=== PATIENT | male | born 1975 | race Caucasian/White ===

== ENCOUNTER 2020-01-28 15:52 | Emergency (ER) | payer SELFPAY ==
[2020-01-28 15:56] VITALS: BP 127/90; PULSE 93; RESP 16; TEMP 36.7; O2SAT 97; BMI 24.3
[2020-01-28 17:15] VITALS: BP 129/85; PULSE 93; RESP 18; O2SAT 97
[2020-01-28 17:28] LABS: Basophils # 0.1 10^3/uL (0.0-0.1); Basophils % 0.5 %; Eosinophils # 0.3 10^3/uL (0.0-0.8); Eosinophils % 2.8 %; Hematocrit 43.5 % (42.0-52.0); Hemoglobin 14.4 g/dL (11.7-16.6); Lymphocytes % 26.3 %; Mean Corpuscular HGB Conc 33.1 g/dL (30.0-36.0); Mean Corpuscular Hemoglobin 29.9 pg (28.0-34.0); Mean Corpuscular Volume 90.2 fL (80-94); Mean Platelet Volume 9.8 fL (7.4-10.4); Monocytes # 0.7 10^3/uL (0.2-0.9); Monocytes % 6.5 %; Neutrophils # 7.2 10^3/uL (1.8-7.7); Neutrophils % 63.6 %; Nucleated Red Blood Cells % 0 %; Platelet Count 337 10^3/cmm (130-400); Red Blood Count 4.82 10^6/uL (4.1-5.3); Red Cell Distribution Width 12.5 % (12.1-15.1); White Blood Count 11.3 10^3/uL (4.0-10.0)
--- NOTE | 2020-01-28 17:41 | ED_ITS ---
Entered by Edna Zaidi, acting as scribe for Jody Rascon MD, [facility] Jan 28, 2020 15:52 HPI - SOB/Dyspnea General: Chief Complaint: Shortness of Breath/Dyspnea Stated Complaint: sob/cough Time Seen by Provider: 01/28/20 17:40 Source: patient Mode of arrival: ambulatory Limitations: no limitations History of Present Illness: HPI Narrative: 44 yo Male presents to ED with complaint of cough and shortness of breath. Pt states that the last 4 days he has been coughing. Pt states that it gets worse at night and he will wake up feeling like he is drowning. Pt states that he now has a headache and his throat is sore. Pt states that his temperature was a little over 100 degrees this morning. 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 Pt states the last time he was in [place] was of last week. Pt states that he smoked for 26 years and quit last year but started again last month. Pt states that his son recently tested positive for influenza A. MD elicited complaint: shortness of breath and cough Onset (ago): day(s) Context: recent illness Timing: progressively worsening Exacerbating factors: lying flat, exertion and coughing Relieving factors: upright position Associated symptoms: Reports cough and fever(s); Deny abdominal pain, chest pain, nausea, palpitations, polydipsia, polyuria or vomiting Treatment prior to arrival: none Related Data: Home oxygen amount: none Review of Systems General: Reports: 10 or more systems reviewed and unremarkable except in HPI and below Const: Reports: fever Eyes: Denies: change in vision or blurry vision ENMT: Denies: throat pain, enlarged tonsils, painful swallowing, hoarseness, mouth pain or swelling of lips/tongue Card: Denies: chest pain, palpitations, irregular heart rhythm, edema or swelling of feet/ankles Resp: Reports: shortness of breath, non-productive cough and wheezing; Denies: productive cough GI: Denies: abdominal pain, nausea or vomiting : Denies: flank pain, painful urination, urinary frequency, urinary urgency or urinary hesitancy Musc: Denies: neck pain, back pain or extremity swelling Skin/Breast: Denies: rash, itching or redness Neuro: Denies: headache, numbness in extremities or weakness in extremities Endo: Denies: excessive urination, excessive thirst or tired all the time PFSH ED PFSH: Social History Smoking and tobacco status: current every day smoker Physical Exam Const: COMMON NORMALS: no apparent distress, average body habitus, oriented x3, no limitations, healthy appearing, alert and well nourished HENMT: COMMON NORMALS: normocephalic, head/scalp atraumatic and moist oral mucous membranes HEAD & SCALP: normocephalic and atraumatic Eye: COMMON NORMALS: PERRL, EOMs intact bilaterally, conjunctivae normal and no scleral icterus CONJUNCTIVA: Yes conjunctivae normal PUPIL: Yes PERRL Neck/C-Spine: COMMON NORMALS: full ROM, supple, no meningeal signs, no JVD and no carotid bruits Chest: COMMONS NORMALS: inspection of chest normal and palpation of chest normal Resp: COMMON NORMALS: normal respiratory effort, no retractions, no use of accessory muscles, clear to auscultation bilaterally and percussion normal AUSCULTATION: clear to auscultation bilaterally PERCUSSION: percussion normal Cardio: COMMON NORMALS: no JVD, regular rate, regular rhythm, S1 normal heart sound, S2 normal heart sound, no gallops, no clicks, no murmurs, no rub and peripheral pulses 2+ throughout RATE: regular rate RHYTHM: regular rhythm HEART SOUNDS: S1 normal and S2 normal PERIPHERAL PULSES: pulses 2+ throughout GI: COMMON NORMALS: normal to inspection, nondistended, normoactive bowel sounds, soft to palpation, non-tender, no hepatosplenomegaly, no masses and no bruits PALPATION: Yes soft and Yes no hepatosplenomegaly : COMMON NORMALS: Yes no CVA tenderness BLADDER/KIDNEY EXAM: Yes no CVA tenderness Back/Pelvis: COMMON NORMALS: no CVA tenderness Extremity: COMMON NORMALS: normal to inspection, full ROM, normal capillary refill, no calf tenderness and no pedal edema Neuro: COMMON NORMALS: oriented x3 SENSORIUM/ORIENTATION: Yes alert MENINGEAL SIGNS: Yes no meningeal signs Skin: COMMON NORMALS: no rashes or lesions noted, no wounds, skin turgor normal, no jaundice, no petechiae and no mottling GENERAL SKIN EXAM: no rashes or lesions noted and turgor normal Course Reevaluation(s): Reevaluation #1: Discussed his lab and imaging findings with him. Negative for acute findings. He probably has a viral upper respiratory tract infection. We will discharge him home with cough medicine. I explained to him that currently he does admit the state testing criteria for the covid-19 infection. I explained my conversation with the wound care center consultant and he voiced understanding and is in agreement with the plan. Time: 19:14 Vital Signs: Vital signs: Vital Signs Temperature 98.1 F 01/28/20 15:56 Pulse Rate 80 01/28/20 19:27 Respiratory Rate 20 H 01/28/20 19:27 Blood Pressure 124/84 01/28/20 19:27 Pulse Oximetry 97 01/28/20 19:27 MDM - SOB/Dyspnea MDM Narrative: Medical decision making narrative: 44-year-old male patient who presents with symptoms suggestive of a viral upper respiratory tract infection. Nothing in his history is suggestive of exposure to or risk factors for COVID- 19. He is discharged home on conservative measures. Differential Diagnosis: Shortness of Breath Differential Diagnosis: Likely acute exacerbation of chronic obstructive airways disease, community acquired pneumonia and pulmonary embolism Medical Records: Attestation: I reviewed the patient's medical records. Lab Data: Attestation: I reviewed the patient's lab results. Labs: Lab Results 01/28/20 01/28/20 01/28/20 Range/Units 17:02 17:02 17:15 WBC 11.3 H (4.0-10.0) 10^3/ uL RBC 4.82 (4.1-5.3) 10^6/u L Hgb 14.4 (11.7-16.6) g/dL Hct 43.5 (42.0-52.0) % MCV 90.2 (80-94) fL MCH 29.9 (28.0-34.0) pg MCHC 33.1 (30.0-36.0) g/dL RDW 12.5 (12.1-15.1) % Plt Count 337 (130-400) 10^3/c mm MPV 9.8 (7.4-10.4) fL Neut % (Auto) 63.6 % Lymph % (Auto) 26.3 % [place] % (Auto) 6.5 % Eos % (Auto) 2.8 % Baso % (Auto) 0.5 % Neut # (Auto) 7.2 (1.8-7.7) 10^3/u L Lymph # (Auto) 3.0 (0.8-4.8) 10^3/u L [place] # (Auto) 0.7 (0.2-0.9) 10^3/u L Eos # (Auto) 0.3 (0.0-0.8) 10^3/u L Baso # (Auto) 0.1 (0.0-0.1) 10^3/u L Nucleated RBC % (a uto) 0 % Nucleated RBCs # 0.0 /100WBC Sodium 138 (136-145) mmol/L Potassium 4.2 (3.5-5.1) mmol/L Chloride 101 (98-107) mmol/L Carbon Dioxide 26 (22-29) mmol/L Anion Gap 15.2 (5-19) BUN 12 (6-20) mg/dL Creatinine 1.1 (0.7-1.2) mg/dL GFR Calculation 73.1 L (90-130) mL/min Glucose 99 (65-115) mg/dL Calculated Osmolal ity 282 L (285-295) mOsm/k g Calcium 9.5 (8.5-10.5) mg/dL Total Bilirubin 0.2 (0.15-1.2) mg/dL AST 20 (0-40) U/L ALT 21 (0-41) U/L Alkaline Phosphata se 102 (40-130) IU/L Total Protein 7.2 (6.6-8.7) g/dL Albumin 4.5 (3.5-5.2) g/dL Globulin 2.7 (1.3-4.6) g/dL Influenza Type A A g Negative (Negative) POC Influenza B Ag Negative (Negative) Discharge Plan Discharge Patient Disposition: Home, Self-Care Clinical Impression: Viral upper respiratory tract infection Condition: Stable Prescriptions: New promethazine-codeine 6.25-10 mg/5 mL syrup 5 ml PO Q4H PRN (Reason: cough) Qty: 100 RF: 0 Continued Ativan 0.5 mg Tablet See Rx Instructions .ROUTE .COMPLEX RF: 0 Dayquil 2 cap PO QAM RF: 0 Discontinued guaifenesin [Tussin] 100 mg/5 mL Liquid 100 mg PO PRN RF: 0 Nyquil 2 cap PO QPM RF: 0 Discharge Orders: Discharge Order (Routine); Ordered 01/28/20 Ordered By: Jody Rascon Referrals: Ken Key DO [Primary Care Provider] - 7-10 days Patient Instructions: Upper Respiratory Infection (ED) Activity Restrictions/Additional Instructions: Return for any new or worsening symptoms. Follow-up with your primary care provider within 1 week. Take the cough medicine as needed for cough, however do not take it while driving or operating heavy machinery as it may cause drowsiness. You currently do not meet criteria for COVID-19 testing, however if you feel worse or develop other symptoms that are concerning please return for evaluation. 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
[2020-01-28 17:47] LABS: Alanine Aminotransferase 21 U/L (0-41); Albumin Level 4.5 g/dL (3.5-5.2); Alkaline Phosphatase 102 IU/L (40-130); Anion Gap 15.2 (5-19); Aspartate Amino Transferase 20 U/L (0-40); Blood Urea Nitrogen 12 mg/dL (6-20); Calcium 9.5 mg/dL (8.5-10.5); Carbon Dioxide 26 mmol/L (22-29); Chloride 101 mmol/L (98-107); Globulin 2.7 g/dL (1.3-4.6); Glomerular Filtration Rate 73.1 mL/min (90-130); Glucose 99 mg/dL (65-115); Osmolality Calculated 282 mOsm/kg (285-295); Potassium 4.2 mmol/L (3.5-5.1); Sodium 138 mmol/L (136-145); Total Bilirubin 0.2 mg/dL (0.15-1.2); Total Protein 7.2 g/dL (6.6-8.7)
--- NOTE | 2020-01-28 17:49 | XR_ITS ---
WS: [id number] XR chest 2V* [id number] REASON FOR EXAM: SOB FINDINGS: The heart and mediastinal interfaces normal. There are small granulomas in both hilar areas these are well calcified. The lung calle are well aerated no pneumonia, pleural effusion, pulmonary edema, or pneumothorax. The hilum is and apices normal. No osseous abnormalities. The chest is similar to November 08, 2018. XR/XR chest 2V* [id number] IMPRESSION: Negative chest for active pathology.
[2020-01-28 17:56] LABS: Influenza A by IFA Negative (Negative); Influenza B by IFA Negative (Negative)
[2020-01-28 19:27] VITALS: BP 124/84; PULSE 80; RESP 20; O2SAT 97
== END 2020-01-28 19:27 | disposition home or self-care (01) ==
PROVIDERS: Emergency Provider Family Medicine; Family Provider Family Medicine; PCP Family Medicine
DX: J06.9 Acute upper respiratory infection, unspecified (principal); B34.9 Viral infection, unspecified; F17.210 Nicotine dependence, cigarettes, uncomplicated
CPT/HCPCS: 12345; 36415; 71046; 80053; 85025; 87804; 99282; 99283

== ENCOUNTER 2020-02-14 14:39 | Emergency (ER) | payer OTHER, SELFPAY ==
[2020-02-14 14:47] VITALS: BP 156/94; PULSE 79; RESP 20; TEMP 36.6; O2SAT 96; BMI 25.8
--- NOTE | 2020-02-14 15:01 | CT_ITS ---
WS: [id number] CT LUMBAR SPINE, noncontrast. HISTORY: acute low back pain, left side, injury TECHNIQUE: Contiguous 2.5 mm axial imaging are performed. Sagittal and coronal reformats are submitte d and reviewed. All CT scans at [facility] use at least one of these dose optimization te chniques: automated exposure control; mA and/or kV adjustment per patient size (includes targeted exa ms where dose is matched to clinical indication); or iterative reconstruction. IV contrast: None DLP: 1821.47 mGy.cm COMPARISON: None available. Normal lumbar alignment with no loss of disc space height or vertebral body height. L1-2: Normal. L2-3: Normal. L3-4: Very minimal bulging into the LEFT foramen and contacting the L3 nerve root. No displacement. T his is minimal disc bulging. L4-5: Normal. L5-S1: No disc herniations or stenosis. S1 spina bifida occulta. Visualized retroperitoneum is normal. CT/CT lumbar spine wo con* [id number] IMPRESSION: 1. No significant disc herniations or fractures. 2. Very minimal disc bulging into the LEFT foramen at L3-4 with mild contact o n the LEFT L3 nerve root.
--- NOTE | 2020-02-14 15:02 | ED_ITS ---
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 Patient appears uncomfortable has pain down to lower buttock and down into the groin area and the low back denies any urination problems is able to urinate fine MD elicited complaint: back pain and back injury Pertinent past history: prior back pain Onset (ago): hour(s) (Happened at 1230 today) Timing: constant and progressively worsening Severity: moderate Similar Symptoms Previously: No Quality: stabbing and aching Location: left lower back Radiation: buttocks Exacerbating factors: movement, walking and lifting Relieving factors: immobilization Context: while lifting, turning/twisting and bending Associated symptoms: Reports no associated symptoms; Deny abdominal pain, chills, fever(s), nausea or vomiting Work related injury: Yes Review of Systems Const: Denies: fever, chills or body aches Eyes: Denies: change in vision or blurry vision ENMT: Denies: throat pain or nasal congestion Card: Denies: chest pain or shortness of breath on exertion Resp: Denies: shortness of breath, productive cough or non-productive cough GI: Denies: abdominal pain, nausea or vomiting : Denies: difficulty urinating Musc: Reports: back pain; Denies: extremity pain Skin/Breast: Denies: rash Neuro: Denies: headache Psych: Denies: anxiety or depression [place]/Lymph: Denies: easy bruising PFS ED PFSH: Social History Smoking and tobacco status: current every day smoker Physical Exam Const: COMMON NORMALS: no apparent distress, average body habitus and oriented x3 HENMT: COMMON NORMALS: normocephalic HEAD & SCALP: normal to inspection and normocephalic FACE & SINUS: normal facial exam Eye: COMMON NORMALS: conjunctivae normal GENERAL EYE: normal appearance of both eyes CONJUNCTIVA: Yes conjunctivae normal Neck/C-Spine: COMMON NORMALS: no JVD Chest: COMMONS NORMALS: inspection of chest normal Resp: COMMON NORMALS: normal respiratory effort and clear to auscultation bilaterally AUSCULTATION: clear to auscultation bilaterally Cardio: COMMON NORMALS: no JVD, regular rate and regular rhythm RATE: regular rate RHYTHM: regular rhythm GI: COMMON NORMALS: normal to inspection, nondistended, normoactive bowel sounds Back/Pelvis: LUMBAR SPINE/LOWER BACK: Yes ROM limited, Yes pain with ROM, Yes paraspinal muscle spasm and Yes straight leg raise positive left Straight leg raise positive details left: at 30 degrees Extremity: COMMON NORMALS: normal to inspection and full ROM Neuro: COMMON NORMALS: oriented x3 Course Vital Signs: Vital signs: Vital Signs Temperature 98 F 02/14/20 14:47 Pulse Rate 79 02/14/20 14:47 Respiratory Rate 20 H 02/14/20 14:47 Blood Pressure 156/94 02/14/20 14:47 Pulse Oximetry 96 02/14/20 14:47 Discharge Plan Discharge Condition: Stable Prescriptions: No Action Ativan 0.5 mg Tablet See Rx Instructions .ROUTE .COMPLEX RF: 0 Dayquil 2 cap PO QAM RF: 0 promethazine-codeine 6.25-10 mg/5 mL syrup 5 ml PO Q4H PRN (Reason: cough) Qty: 100 RF: 0 Coding Level of Care Code ED 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
[2020-02-14] MEDS: HYDROcodone-acetaminophen 7.5-325 mg Tablet 1 TAB PO (15:08)
[2020-02-14] MEDS: ketorolac 60 mg/2 mL INJ IM (15:09)
[2020-02-14] MEDS: methocarbamol 500 mg Tablet PO (15:20)
[2020-02-14 16:00] VITALS: BP 122/94; PULSE 81; RESP 18; O2SAT 97
== END 2020-02-14 16:03 | disposition home or self-care (01) ==
PROVIDERS: Emergency Provider Nurse Practitioner Family; Family Provider Family Medicine; PCP Family Medicine
DX: M54.16 Radiculopathy, lumbar region (principal); F17.200 Nicotine dependence, unspecified, uncomplicated
CPT/HCPCS: 12345; 72131; 96372; 99281; 99283; J1885

== ENCOUNTER 2020-04-24 08:34 | Outpatient (CLI) | payer OTHER, SELFPAY ==
--- NOTE | 2020-04-24 08:37 | MR_ITS ---
WS: [id number] MRI LUMBAR SPINE NONCONTRAST HISTORY: LOW BACK PAIN W/NEURALGIA OF LT SCIATIC NERVE COMPARISON: 02/14/2020 TECHNIQUE: Sagittal and axial multisequence imaging is submitted. Minimal straightening of the normal lumbar lordosis. Disc spaces and vertebral body heights are max l. There is no marrow edema or fracture. Disc spaces and vertebral body heights are well-preserved. Conus terminates normally at L1-2 disc level. L1-L2: Normal. L2-L3: Normal. L3-L4: Asymmetric disc bulging to the LEFT into the foramen and extraforaminal. There is contact on t he L3 nerve root and displacement. Moderate effacement of fat in the LEFT foramen. There is mild face t joint arthritis and fluid in the facet joints. L4-L5: Normal. L5-S1: Normal. Retroperitoneum and soft tissues are negative. MR/MR lumbar spine wo con* [id number] IMPRESSION: 1. Broad-based asymmetric disc bulging into the LEFT L3-4 foramen and extrafor aminal with contact on the L3 nerve root. Moderate LEFT foraminal stenosis at L 3-4. 2. No central stenosis.
== END 2020-04-24 08:35 | disposition home or self-care (01) ==
LOC: RADSHAW 08:36
PROVIDERS: PCP Family Medicine; Visit Provider Nurse Practitioner Family
DX: G58.8 Other specified mononeuropathies (principal); M51.26 Other intervertebral disc displacement, lumbar region; M48.061 Spinal stenosis, lumbar region without neurogenic claudication
CPT/HCPCS: 72148

== ENCOUNTER 2020-06-16 13:07 | Emergency (ER) | payer SELFPAY ==
[2020-06-16 13:21] VITALS: BMI 22.1
[2020-06-16 13:24] VITALS: BP 99/79; PULSE 84; RESP 24; TEMP 36.6; O2SAT 99
--- NOTE | 2020-06-16 14:00 | W.ED.SOB ---
HPI - SOB/Dyspnea General: Chief Complaint: Shortness of Breath/Dyspnea Stated Complaint: SOB Time Seen by Provider: 06/16/20 13:28 History of Present Illness: HPI Narrative: 64-year-old male comes in complaining of shortness of breath he is [address] Miguel A Sanchez did a laminectomy at the L3 level on 629 he still has some hypersensitivity along the L3 dermatome on the left leg but that has been improving yesterday he suddenly began to be markedly short of breath and is persisted over the last 24 hours and if he exerts himself he gets unusually short of breath. He has been trying to be active but admits he has been for the most part sedentary beyond physical therapy. He does not have a cough is is no sputum production he denies fever he has had a little sweats at times but denies chills no hemoptysis. He is not on any oxygen at home. MD elicited complaint: shortness of breath and cough Pertinent past history: other (Recent lumbar laminectomy surgery) Onset (ago): day(s) (1) Context: other (Recent surgery) Timing: constant Severity: moderate Exacerbating factors: exertion Relieving factors: oxygen and rest Known history of: other (Recent lumbar laminectomy) Associated symptoms: Deny chest congestion, chest pain, cough, diaphoresis, dizziness, extremity pain, fever(s), hemoptysis, lightheadedness, nausea, orthopnea, palpitations, syncope or vomiting Treatment prior to arrival: oxygen and bronchodilator Review of Systems Const: Denies: fever(s) or diaphoresis ENMT: Denies: throat pain, ear or mastoid pain, nasal discharge or nasal congestion Card: Denies: chest pain, palpitations, lightheadedness, syncope or orthopnea Resp: Denies: hemoptysis or chest congestion GI: Denies: nausea or vomiting : Denies: flank pain, dysuria, urinary frequency or urinary urgency Musc: Denies: extremity pain Skin/Breast: Denies: rash or pruritus Neuro: Denies: dizziness PFSH ED PFSH: Medical History (Updated 06/16/20 @ 15:19 by Neeraj Nix DO) No significant past medical history Surgical History (Updated 06/16/20 @ 15:12 by Neeraj Nix DO) History of lumbar laminectomy Social History Smoking and tobacco status: current every day smoker Physical Exam Const: COMMON NORMALS: no acute distress GENERAL APPEARANCE: cooperative and comfortable ORIENTATION/CONSCIOUSNESS: Yes awake, Yes oriented to person, Yes oriented to place and Yes oriented to time HENMT: COMMON NORMALS: normocephalic and atraumatic HEAD & SCALP: normocephalic and atraumatic Eye: COMMON NORMALS: Equal, round and reactive pupils present, EOMs intact bilaterally, conjunctivae normal and no scleral icterus CONJUNCTIVA: Yes conjunctivae normal PUPIL: Yes Equal, round and reactive pupils present Neck/C-Spine: COMMON NORMALS: full ROM, no lymphadenopathy, supple and no JVD OTHER: Auscultated little stridor in the neck. Stridor is audible in the exam room. Lymph: LYMPHATIC: no lymphadenopathy noted and no lymphedema noted Resp: COMMON NORMALS: normal respiratory effort, No retractions, No use of accessory muscles and clear to auscultation bilaterally AUSCULTATION: clear to auscultation bilaterally Cardio: COMMON NORMALS: no JVD, regular rate, regular rhythm and No murmurs present (Cardio) RATE: regular rate RHYTHM: regular rhythm GI: COMMON NORMALS: Soft to palpation and No hepatosplenomegaly present AUSCULTATION: Yes normoactive bowel sounds PALPATION: Yes Soft to palpation, No Tenderness to palpation present (GI), No Guarding due to palpation present (GI) and Yes No hepatosplenomegaly present Extremity: COMMON NORMALS: normal to inspection, capillary refill normal, no clubbing, cyanosis or edema, no calf tenderness and no pedal edema Neuro: SENSORIUM/ORIENTATION: Yes oriented to person, Yes oriented to place and Yes oriented to time Skin: COMMON NORMALS: no rashes or lesions noted GENERAL SKIN EXAM: no rashes or lesions noted Course Vital Signs: Vital signs: Vital Signs Temperature 97.8 F 06/16/20 13:24 Pulse Rate 88 06/16/20 16:03 Respiratory Rate 18 06/16/20 16:03 Blood Pressure 121/88 06/16/20 16:03 Pulse Oximetry 98 06/16/20 16:03 MDM - SOB/Dyspnea MDM Narrative: Medical decision making narrative: Patient has findings of pneumonia on the CTA. Not present on the chest x-ray. We will go ahead and start on antibiotics and albuterol inhaler. Return if has problems follow-up with primary care next week. Lab Data: Labs: Lab Results 06/16/20 06/16/20 06/16/20 Range/Units 14:20 14:29 14:29 WBC 7.2 (4.0-10.0) 10^3/ uL RBC 4.67 (4.1-5.3) 10^6/u L Hgb 13.8 (11.7-16.6) g/dL Hct 41.9 L (42.0-52.0) % MCV 89.7 (80-94) fL MCH 29.6 (28.0-34.0) pg MCHC 32.9 (30.0-36.0) g/dL RDW 12.9 (12.1-15.1) % Plt Count 296 (130-400) 10^3/c mm MPV 9.6 (7.4-10.4) fL Neut % (Auto) 52.4 % Lymph % (Auto) 31.2 % [place] % (Auto) 8.7 % Eos % (Auto) 6.6 % Baso % (Auto) 0.8 % Neut # (Auto) 3.78 (1.8-7.7) 10^3/u L Lymph # (Auto) 2.3 (0.8-4.8) 10^3/u L [place] # (Auto) 0.6 (0.2-0.9) 10^3/u L Eos # (Auto) 0.5 (0.0-0.8) 10^3/u L Baso # (Auto) 0.1 (0.0-0.1) 10^3/u L Nucleated RBC % (a uto) 0 % Nucleated RBCs # 0.0 /100WBC Specimen Type Arterial Sample Site Radial, right ABG pH 7.50 H (7.35-7.45) ABG pCO2 30.9 L (35-45) mmHg ABG pO2 89.7 (80.0-100.0) mmH g ABG HCO3 23.9 (22-26) mmol/L ABG O2 Saturation 98.3 ABG Base Excess 1.4 (-2.0-2.0) mmol/ L [place] Test Pos A-a O2 Gradient 2.7 L (5-10) mmHg Hematocrit 43.7 (42-52) % Hgb O2 Saturation 95.2 (95-100) % Carboxyhemoglobin 2.4 (0.4-20.1) %THgb Methemoglobin 0.7 (0.4-1.5) % Total Hemoglobin 14.2 (14-18) g/dL Sodium 142.0 139 (131-143) mmol/L Potassium 3.6 3.9 (3.5-5.0) mmol/L Glucose 122.0 H 112 (70-115) mg/dL Ionized Calcium 1.2 (1.1-1.4) mmol/L O2 Delivery Device Room air FiO2 21.0 % Pediatric Physical Therapist ID [place] Chloride 104 (98-107) mmol/L Carbon Dioxide 27 (22-29) mmol/L Anion Gap 11.9 (5-19) BUN 9 (6-20) mg/dL Creatinine 0.8 (0.7-1.2) mg/dL GFR Calculation 105.5 (90-130) mL/min Calculated Osmolal ity 285 (285-295) mOsm/k g Calcium 8.7 (8.5-10.5) mg/dL Total Bilirubin 0.2 (0.15-1.2) mg/dL AST 17 (0-40) U/L ALT 24 (0-41) U/L Alkaline Phosphata se 94 (40-130) IU/L Total Protein 7.1 (6.6-8.7) g/dL Albumin 4.2 (3.5-5.2) g/dL Globulin 2.9 (1.3-4.6) g/dL Discharge Plan Discharge Patient Disposition: Home Clinical Impression: Community acquired pneumonia Condition: Stable Prescriptions: New Levaquin 750 mg tablet 750 mg PO DAILY 7 Days Qty: 7 RF: 0 albuterol sulfate 90 mcg/actuation HFA aerosol inhaler 2 inh INHALATION Q4H PRN (Reason: shortness of breath or wheezing) Qty: 18 RF: 0 No Action lorazepam [Ativan] 0.5 mg Tablet See Rx Instructions .ROUTE .COMPLEX RF: 0 Soma 350 mg Tablet 350 mg PO TID PRN (Reason: Pain) RF: 0 cyclobenzaprine 10 mg Tablet 10 mg PO TID PRN (Reason: Muscle Pain) RF: 0 amitriptyline 25 mg Tablet 25 mg PO DAILY RF: 0 gabapentin 300 mg Capsule See Rx Instructions .ROUTE .COMPLEX RF: 0 diclofenac sodium 75 mg Tablet,Delayed Release (Dr/Ec) 75 mg PO BID PRN (Reason: Pain) RF: 0 Discharge Orders: Discharge Order (Routine); Ordered 06/16/20 Ordered By: Neeraj Nix Referrals: Ken Key, [Primary Care Provider] - Discharge Diet: Advance as tolerated Discharge Activity: Resume usual activity Activity Restrictions/Additional Instructions: Add Levaquin 750 p.o. 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
--- NOTE | 2020-06-16 14:10 | CT_ITS ---
WS: [id number] CT CHEST ANGIOGRAPHY WITH REFORMATS HISTORY: Dyspnea/ chest pain TECHNIQUE: Contiguous axial images are obtained through the chest during arterial injection of intrav enous contrast. Images are reconstructed to evaluate the pulmonary arteries. MIP imaging also reviewe d. All CT scans at [facility] use at least one of these dose optimization techniques: aut omated exposure control; mA and/or kV adjustment per patient size (includes targeted exams where dose is matched to clinical indication); or iterative reconstruction. CONTRAST: Omnipaque 350; 95 mL IV. DLP: 610.16 mGy.cm COMPARISON: None available. Excellent opacification of the pulmonary arteries. No pulmonary embolism. Pulmonary artery size is no rmal. Normal thoracic aorta. No pericardial or pleural effusion. Heart size is normal. Mild tree-in-b ud airspace disease involving the distal airways of the RIGHT upper lobe. There are additional change s of chronic emphysema and reticular interstitial thickening. Indeterminate mediastinal and hilar lymph nodes. Largest lymph node is at the RIGHT hilum measuring 1 2 mm in short axis diameter. Subcarinal lymph node measures 11 mm. Smaller LEFT hilar and RIGHT parat [place] lymph nodes are seen present. Liver is top normal size. Hepatic steatosis along the falciform ligament. No bile duct dilatation. Ga llbladder is negative. No adrenal mass. No osteoblastic or osteolytic bone disease. CT/CT angio chest PE protcl [id number] IMPRESSION: 1. No pulmonary embolism. 2. Very mild early changes of tree-in-bud opacification RIGHT upper lobe. Most likely due to endobronchial pneumonia. 3. Enlarged mediastinal and hilar lymph nodes are probably reactive.
--- NOTE | 2020-06-16 14:10 | XR_ITS ---
WS: [id number] PORTABLE CHEST HISTORY: dyspnea/cough COMPARISON: 01/28/2020 Lungs are clear and well expanded. No pleural effusion or pneumothorax. Cardiac size: Normal. Mediastinum/Aorta: Normal mediastinum. No osseous abnormality seen. XR/XR chest 1V portable [id number] IMPRESSION: Unremarkable portable chest.
--- NOTE | 2020-06-16 14:11 | ECG_ITS ---
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 Measurements Intervals [place] Rate: 62 P: 54 MS: 227 QRS: 50 QRSD: 81 T: 61 QT: 365 QTc: 371 Interpretive Statements SINUS RHYTHM WITH SINUS ARRHYTHMIA WITH FIRST DEGREE AV BLOCK Compared to ECG 09/03/2018 12:39:06 Early repolarization no longer present Electronically Signed On 06-16-2020 21:44:03 CDT by Mary Greco M.D. [id number] f
[2020-06-16 14:22] VITALS: BP 119/82; PULSE 88; RESP 20; O2SAT 96
[2020-06-16 14:33] LABS: ABG PCO2 30.9 mmHg (35-45); Alveolar-Arterial Oxygen Gradi 2.7 mmHg (5-10); Arterial Blood Gas Hematocrit 43.7 % (42-52); Base Excess ABG 1.4 mmol/L (-2.0-2.0); Blood Gas Allen Test Pos; Blood Gas Operator Identificat MONRO; Blood Gas Sample Site Radial, right; Blood Gas Sample Type Arterial; Carboxyhemoglobin 2.4 %THgb (0.4-20.1); HCO3 ABG 23.9 mmol/L (22-26); HGB O2 Sat 95.2 % (95-100); Ionized Calcium Level - ABG 1.2 mmol/L (1.1-1.4); Methemoglobin 0.7 % (0.4-1.5); Oxygen Device ROOM AIR; Oxygen Saturation ABG 98.3; PO2 ABG 89.7 mmHg (80.0-100.0); Potassium Level - ABG 3.6 mmol/L (3.5-5.0); Total Hemoglobin 14.2 g/dL (14-18)
[2020-06-16 14:38] LABS: Basophils # 0.1 10^3/uL (0.0-0.1); Basophils % 0.8 %; Eosinophils # 0.5 10^3/uL (0.0-0.8); Eosinophils % 6.6 %; Hematocrit 41.9 % (42.0-52.0); Hemoglobin 13.8 g/dL (11.7-16.6); Lymphocytes # 2.3 10^3/uL (0.8-4.8); Lymphocytes % 31.2 %; Mean Corpuscular HGB Conc 32.9 g/dL (30.0-36.0); Mean Corpuscular Hemoglobin 29.6 pg (28.0-34.0); Mean Corpuscular Volume 89.7 fL (80-94); Mean Platelet Volume 9.6 fL (7.4-10.4); Monocytes # 0.6 10^3/uL (0.2-0.9); Monocytes % 8.7 %; Neutrophils # 3.78 10^3/uL (1.8-7.7); Neutrophils % 52.4 %; Nucleated Red Blood Cells % 0 %; Platelet Count 296 10^3/cmm (130-400); Red Blood Count 4.67 10^6/uL (4.1-5.3); Red Cell Distribution Width 12.9 % (12.1-15.1); White Blood Count 7.2 10^3/uL (4.0-10.0)
[2020-06-16] MEDS: iohexol 350 mg/mL 100 mL Btl IV (14:48)
[2020-06-16 14:54] LABS: Alanine Aminotransferase 24 U/L (0-41); Albumin Level 4.2 g/dL (3.5-5.2); Alkaline Phosphatase 94 IU/L (40-130); Anion Gap 11.9 (5-19); Aspartate Amino Transferase 17 U/L (0-40); Blood Urea Nitrogen 9 mg/dL (6-20); Calcium 8.7 mg/dL (8.5-10.5); Carbon Dioxide 27 mmol/L (22-29); Chloride 104 mmol/L (98-107); Globulin 2.9 g/dL (1.3-4.6); Glomerular Filtration Rate 105.5 mL/min (90-130); Glucose 112 mg/dL (65-115); Osmolality Calculated 285 mOsm/kg (285-295); Potassium 3.9 mmol/L (3.5-5.1); Sodium 139 mmol/L (136-145); Total Bilirubin 0.2 mg/dL (0.15-1.2); Total Protein 7.1 g/dL (6.6-8.7)
[2020-06-16 15:22] VITALS: BP 121/88; PULSE 88; RESP 18; O2SAT 98
[2020-06-16 16:03] VITALS: BP 121/88; PULSE 88; RESP 18; O2SAT 98
== END 2020-06-16 16:03 | disposition home or self-care (01) ==
PROVIDERS: Emergency Provider Family Medicine; PCP Family Medicine
DX: J18.9 Pneumonia, unspecified organism (principal); F17.210 Nicotine dependence, cigarettes, uncomplicated
CPT/HCPCS: 12345; 36415; 36600; 71045; 71275; 80051; 80053; 82810; 83986; 85025; 93005; 99283; Q9967

== ENCOUNTER 2020-06-22 04:54 | Observation (INO) | payer OTHER, SELFPAY ==
[2020-06-22] VITALS (15 sets, daily range): BP systolic 106–141; BP diastolic 69–93; PULSE 72–113; RESP 15–26; TEMP 36.6–37; O2SAT 92–98; BMI 23.6
--- NOTE | 2020-06-22 05:17 | XRR_ITS ---
PROCEDURE INFORMATION: Exam: XR Chest, 1 View Exam date and time: 06/22/2020 5:44 AM Age: 44 years old Clinical indication: Cough and shortness of breath; Additional info: SOB x 4 or 5 days TECHNIQUE: Imaging protocol: XR of the chest Views: Frontal portable upright view of the chest. COMPARISON: CR XR chest 1V portable [id number] 06/16/2020 2:23 PM FINDINGS: Tubes, catheters and devices: EKG leads are present overlying the chest. Lungs: The lungs are clear bilaterally. The pulmonary vasculature is normal. Pleural space: No pleural effusion. No pneumothorax. Heart/Mediastinum: The heart is normal in size and contour. Mediastinum: Stable. Bones/joints: Right lateral vertebral body marginal osteophytes are noted at lower thoracic spinal levels. XR/XR chest 1V portable [id number] IMPRESSION: No acute cardiopulmonary abnormality identified.
--- NOTE | 2020-06-22 05:18 | ECG_ITS ---
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 Measurements Intervals [place] Rate: 79 P: 60 CT: 187 QRS: 68 QRSD: 78 T: 70 QT: 323 QTc: 372 Interpretive Statements SINUS RHYTHM Compared to ECG 06/16/2020 14:57:58 Sinus arrhythmia no longer present First degree AV block no longer present Electronically Signed On 06-22-2020 15:47:03 CDT by Mary Greco M.D. [id number]
--- NOTE | 2020-06-22 05:42 | ED_ITS ---
Documented by User: Shadi Mojica DO 06/22/20 05:59 HPI - SOB/Dyspnea General: Chief Complaint: Shortness of Breath/Dyspnea Stated Complaint: sob Time Seen by Provider: 06/22/20 05:03 History of Present Illness: HPI Narrative: 44-year-old male who was here a week or so ago. He complained of cough and shortness of breath at that point. He was diagnosed with pneumonia after he had a CTA. He returns today. He still short of breath. He is coughing quite a bit. He denies any fever. Says his sputum production is clear to white and scant. He has had no known exposure to COVID-19. MD elicited complaint: shortness of breath Pertinent past history: pneumonia Onset (ago): day(s) Context: recent illness Timing: constant Severity: moderate Exacerbating factors: exertion Relieving factors: nothing Associated symptoms: Reports chest congestion, chest pain and cough; Deny abdominal pain, dizziness, fever(s), nausea, orthopnea, palpitations or vomiting Treatment prior to arrival: bronchodilator Review of Systems Const: Reports: chills; Denies: fever(s) Eyes: Denies: change in vision ENMT: Reports: post nasal drip; Denies: swelling of lips/tongue or sinus pain Card: Reports: chest pain; Denies: palpitations, irregular heart rhythm, edema, dyspnea on exertion or orthopnea Resp: Reports: chest congestion GI: Denies: abdominal pain, nausea, vomiting or melena : Denies: difficulty urinating or hematuria Musc: Reports: back pain; Denies: neck pain or joint warmth Skin/Breast: Denies: rash or erythema Neuro: Denies: headache(s), dizziness or vertigo Psych: Denies: anxiety [facility] ED PFSH: Medical History (Updated 06/24/20 @ 00:00 by ) No significant past medical history Surgical History (Updated 06/22/20 @ 09:28 by Selam Modi DO) History of esophagogastroduodenoscopy (EGD) History of lumbar laminectomy May 11, 2020 performed in [place], [place] Family History (Updated 06/22/20 @ 09:29 by Selam Modi DO) Grandfather CAD (coronary artery disease), Onset Age: 32 CABG x3 at age 32 Father CAD (coronary artery disease) Grandmother Lung disease Social History (Updated 06/22/20 @ 09:30 by Selam Modi DO) Smoking and tobacco status: current every day smoker cigarettes Packs smoked per day: 2 Alcohol intake: unknown Physical Exam Const: GENERAL APPEARANCE: well developed, anxious and ill appearing ORIENTATION/CONSCIOUSNESS: Yes oriented to person, Yes oriented to place and Yes oriented to time HENMT: COMMON NORMALS: normocephalic, external ears normal and Normal external nose present HEAD & SCALP: normocephalic FACE & SINUS: normal facial exam NOSE: Normal external nose present and No nasal discharge present EXTERNAL EAR: Yes external ears normal MOUTH: tongue normal Eye: COMMON NORMALS: Equal, round and reactive pupils present, EOMs intact bilaterally and conjunctivae normal EYELID: eyelids normal CONJUNCTIVA: Yes conjunctivae normal PUPIL: Yes Equal, round and reactive pupils present Neck/C-Spine: GENERAL: No tracheal deviation Chest: COMMONS NORMALS: normal inspection of the chest CHEST: No tenderness Resp: COMMON NORMALS: clear to auscultation bilaterally EFFORT & INSPECTION: Yes tachypneic, Yes respiratory distress, No retractions, Yes uses accessory muscles and No tracheal deviation AUSCULTATION: clear to auscultation bilaterally, no rhonchi, no wheezes and diminished lung sounds Cardio: COMMON NORMALS: regular rate and regular rhythm RATE: regular rate RHYTHM: regular rhythm HEART SOUNDS: no murmurs PERIPHERAL PULSES: radial pulses present GI: INSPECTION: No abdominal distension AUSCULTATION: No Hyperactive bowel sounds present and No Hypoactive bowel sounds present PALPATION: No Guarding due to palpation present (GI) and No Rigid due to palpation PERCUSSION: no dullness to percussion and no tympanic to percussion Neuro: SENSORIUM/ORIENTATION: Yes oriented to person, Yes oriented to place and Yes oriented to time Psych: COMMON NORMALS: mental status grossly normal Skin: COMMON NORMALS: no rashes or lesions noted GENERAL SKIN EXAM: no rashes or lesions noted Course Vital Signs: Vital signs: Vital Signs Temperature 97.5 F L 06/23/20 12:00 Pulse Rate 96 06/23/20 15:01 Respiratory Rate 18 06/23/20 13:20 Blood Pressure 132/75 06/23/20 12:00 Pulse Oximetry 95 06/23/20 13:20 MDM - SOB/Dyspnea MDM Narrative: Medical decision making narrative: 44-year-old male with a recent back surgery. He was recently diagnosed with pneumonia, after being seen here short of breath, and receiving a CTA. His CTA was negative for PE. He is not improved after 7 days of Levaquin therapy. His original O2 sat was 92 to 94% with a respiratory rate above 24. His heart rates in the 90s to low 100s. His blood pressure is normal. His EKG shows a normal sinus rhythm with a normal axis rate of [address] changes. His chest x-ray looks clear. Rapid COVID-19 test is pending, as his other laboratory. A CTA has been ordered as well. He will be checked out to Dr. Nix at shift change. Lab Data: Labs: Lab Results 06/22/20 06/22/20 06/22/20 Range/Units 05:06 05:06 05:06 WBC Cancelled Corrected WBC Cancelled RBC Cancelled Hgb Cancelled Hct Cancelled MCV Cancelled MCH Cancelled MCHC Cancelled RDW Cancelled Plt Count Cancelled MPV Cancelled Gran % Cancelled Neut % (Auto) Cancelled Lymph % (Auto) Cancelled Garza % (Auto) Cancelled Eos % (Auto) Cancelled Baso % (Auto) Cancelled Neut # (Auto) Cancelled Lymph # (Auto) Cancelled Garza # (Auto) Cancelled Eos # (Auto) Cancelled Baso # (Auto) Cancelled Absolute Gran (aut o) Cancelled Nucleated RBC % (a uto) Cancelled Nucleated RBCs # Cancelled Fibrinogen (174-498) mg/dL D-Dimer (0-0.59) ug/mIFE U Specimen Type Sample Site ABG pH (7.35-7.45) ABG pCO2 (35-45) mmHg ABG pO2 (80.0-100.0) mmH g ABG HCO3 (22-26) mmol/L ABG Base Excess (-2.0-2.0) mmol/ L Killian Test Hematocrit (42-52) % Hgb O2 Saturation (95-100) % Carboxyhemoglobin (0.4-20.1) %THgb Methemoglobin (0.4-1.5) % Total Hemoglobin (14-18) g/dL O2 Delivery Device FiO2 % Charter Coordinator ID Sodium 138 (136-145) mmol/L Potassium 4.3 (3.5-5.1) mmol/L Chloride 105 (98-107) mmol/L Carbon Dioxide 23 (22-29) mmol/L Anion Gap 14.3 (5-19) BUN 10 (6-20) mg/dL Creatinine 1.0 (0.7-1.2) mg/dL GFR Calculation 81.6 L (90-130) mL/min Glucose 110 (65-115) mg/dL Calculated Osmolal ity 283 L (285-295) mOsm/k g Lactic Acid 1.7 (0.5-2.2) mmol/L Calcium 10.1 (8.5-10.5) mg/dL Ferritin (30-400) ng/mL Total Bilirubin 0.3 (0.15-1.2) mg/dL AST 25 (0-40) U/L ALT 27 (0-41) U/L Alkaline Phosphata se 116 (40-130) IU/L Lactate Dehydrogen ase (135-225) U/L Troponin T Baselin e (0-15) ng/L Troponin T 120 Min [place] (0-15) ng/L Delta Troponin T (0-10) ABS# C-Reactive Protein (0.0-4.9) mg/L NT-Pro-B Natriuret Pep 8 (0-125) pg/mL Total Protein 7.3 (6.6-8.7) g/dL Albumin 4.7 (3.5-5.2) g/dL Globulin 2.6 (1.3-4.6) g/dL Procalcitonin (0-0.5) ng/mL SARS-CoV-2 Ag (Rap id) (Negative) 06/22/20 06/22/20 06/22/20 Range/Units 05:06 05:06 05:52 WBC Corrected WBC RBC Hgb Hct MCV MCH MCHC RDW Plt Count MPV Gran % Neut % (Auto) Lymph % (Auto) Garza % (Auto) Eos % (Auto) Baso % (Auto) Neut # (Auto) Lymph # (Auto) Garza # (Auto) Eos # (Auto) Baso # (Auto) Absolute Gran (aut o) Nucleated RBC % (a uto) Nucleated RBCs # Fibrinogen 309 (174-498) mg/dL D-Dimer 3.34 H (0-0.59) ug/mIFE U Specimen Type Sample Site ABG pH (7.35-7.45) ABG pCO2 (35-45) mmHg ABG pO2 (80.0-100.0) mmH g ABG HCO3 (22-26) mmol/L ABG Base Excess (-2.0-2.0) mmol/ L Killian Test Hematocrit (42-52) % Hgb O2 Saturation (95-100) % Carboxyhemoglobin (0.4-20.1) %THgb Methemoglobin (0.4-1.5) % Total Hemoglobin (14-18) g/dL O2 Delivery Device FiO2 % Charter Coordinator ID Sodium (136-145) mmol/L Potassium (3.5-5.1) mmol/L Chloride (98-107) mmol/L Carbon Dioxide (22-29) mmol/L Anion Gap (5-19) BUN (6-20) mg/dL Creatinine (0.7-1.2) mg/dL GFR Calculation (90-130) mL/min Glucose (65-115) mg/dL Calculated Osmolal ity (285-295) mOsm/k g Lactic Acid (0.5-2.2) mmol/L Calcium (8.5-10.5) mg/dL Ferritin (30-400) ng/mL Total Bilirubin (0.15-1.2) mg/dL AST (0-40) U/L ALT (0-41) U/L Alkaline Phosphata se (40-130) IU/L Lactate Dehydrogen ase (135-225) U/L Troponin T Baselin e 11 (0-15) ng/L Troponin T 120 Min [place] (0-15) ng/L Delta Troponin T (0-10) ABS# C-Reactive Protein (0.0-4.9) mg/L NT-Pro-B Natriuret Pep (0-125) pg/mL Total Protein (6.6-8.7) g/dL Albumin (3.5-5.2) g/dL Globulin (1.3-4.6) g/dL Procalcitonin (0-0.5) ng/mL SARS-CoV-2 Ag (Rap id) Negative (Negative) 06/22/20 06/22/20 06/22/20 Range/Units 06:25 07:15 07:15 WBC 10.7 H Corrected WBC RBC 4.63 Hgb 13.8 Hct 41.9 L MCV 90.5 MCH 29.8 MCHC 32.9 RDW 13.0 Plt Count 342 MPV 9.3 Gran % Neut % (Auto) 62.1 Lymph % (Auto) 23.2 Garza % (Auto) 8.0 Eos % (Auto) 5.3 Baso % (Auto) 0.9 Neut # (Auto) 6.67 Lymph # (Auto) 2.5 Garza # (Auto) 0.9 Eos # (Auto) 0.6 Baso # (Auto) 0.1 Absolute Gran (aut o) Nucleated RBC % (a uto) 0 Nucleated RBCs # 0.0 Fibrinogen (174-498) mg/dL D-Dimer (0-0.59) ug/mIFE U Specimen Type Sample Site ABG pH (7.35-7.45) ABG pCO2 (35-45) mmHg ABG pO2 (80.0-100.0) mmH g ABG HCO3 (22-26) mmol/L ABG Base Excess (-2.0-2.0) mmol/ L Killian Test Hematocrit (42-52) % Hgb O2 Saturation (95-100) % Carboxyhemoglobin (0.4-20.1) %THgb Methemoglobin (0.4-1.5) % Total Hemoglobin (14-18) g/dL O2 Delivery Device FiO2 % Charter Coordinator ID Sodium (136-145) mmol/L Potassium (3.5-5.1) mmol/L Chloride (98-107) mmol/L Carbon Dioxide (22-29) mmol/L Anion Gap (5-19) BUN (6-20) mg/dL Creatinine (0.7-1.2) mg/dL GFR Calculation (90-130) mL/min Glucose (65-115) mg/dL Calculated Osmolal ity (285-295) mOsm/k g Lactic Acid (0.5-2.2) mmol/L Calcium (8.5-10.5) mg/dL Ferritin 198 (30-400) ng/mL Total Bilirubin (0.15-1.2) mg/dL AST (0-40) U/L ALT (0-41) U/L Alkaline Phosphata se (40-130) IU/L Lactate Dehydrogen ase 155 (135-225) U/L Troponin T Baselin e (0-15) ng/L Troponin T 120 Min [place] 10.42 (0-15) ng/L Delta Troponin T -0.58 L (0-10) ABS# C-Reactive Protein 8.3 H (0.0-4.9) mg/L NT-Pro-B Natriuret Pep (0-125) pg/mL Total Protein (6.6-8.7) g/dL Albumin (3.5-5.2) g/dL Globulin (1.3-4.6) g/dL Procalcitonin (0-0.5) ng/mL SARS-CoV-2 Ag (Rap id) (Negative) 06/22/20 06/22/20 Range/Units 07:15 07:51 WBC Corrected WBC RBC Hgb Hct MCV MCH MCHC RDW Plt Count MPV Gran % Neut % (Auto) Lymph % (Auto) Garza % (Auto) Eos % (Auto) Baso % (Auto) Neut # (Auto) Lymph # (Auto) Garza # (Auto) Eos # (Auto) Baso # (Auto) Absolute Gran (aut o) Nucleated RBC % (a uto) Nucleated RBCs # Fibrinogen (174-498) mg/dL D-Dimer (0-0.59) ug/mIFE U Specimen Type Arterial Sample Site Radial, left ABG pH 7.40 (7.35-7.45) ABG pCO2 39.2 (35-45) mmHg ABG pO2 69.7 L (80.0-100.0) mmH g ABG HCO3 24.3 (22-26) mmol/L ABG Base Excess -0.4 (-2.0-2.0) mmol/ L Killian Test Pos Hematocrit 46.9 (42-52) % Hgb O2 Saturation 92.7 L (95-100) % Carboxyhemoglobin 0.9 (0.4-20.1) %THgb Methemoglobin 0.9 (0.4-1.5) % Total Hemoglobin 15.3 (14-18) g/dL O2 Delivery Device Room air FiO2 21.0 % Charter Coordinator ID Cak Sodium (136-145) mmol/L Potassium (3.5-5.1) mmol/L Chloride (98-107) mmol/L Carbon Dioxide (22-29) mmol/L Anion Gap (5-19) BUN (6-20) mg/dL Creatinine (0.7-1.2) mg/dL GFR Calculation (90-130) mL/min Glucose (65-115) mg/dL Calculated Osmolal ity (285-295) mOsm/k g Lactic Acid (0.5-2.2) mmol/L Calcium (8.5-10.5) mg/dL Ferritin (30-400) ng/mL Total Bilirubin (0.15-1.2) mg/dL AST (0-40) U/L ALT (0-41) U/L Alkaline Phosphata se (40-130) IU/L Lactate Dehydrogen ase (135-225) U/L Troponin T Baselin e (0-15) ng/L Troponin T 120 Min [place] (0-15) ng/L Delta Troponin T (0-10) ABS# C-Reactive Protein (0.0-4.9) mg/L NT-Pro-B Natriuret Pep (0-125) pg/mL Total Protein (6.6-8.7) g/dL Albumin (3.5-5.2) g/dL Globulin (1.3-4.6) g/dL Procalcitonin 0.06 (0-0.5) ng/mL SARS-CoV-2 Ag (Rap id) (Negative) Discharge Plan Discharge Patient Disposition: Admitted As Inpatient Admit Provider: Selam Modi Condition: Stable Referrals: Misael Abdalla NP [Referring] - 06/30/20 10:45 am (Please see Misael Huang CLERICAL ADJUSTER at [facility] on June 30 at 1045 ) Discharge Diet: Regular Discharge Activity: Increase activity as tolerated Patient Instructions: Doxycycline (By mouth), Prednisone (By mouth), Nicotine (Absorbed through the skin), Ipratropium/Albuterol (By breathing) Additional Instructions: You were admitted to the hospital due to concern for an exacerbation of COPD. To have formal diagnosis of COPD you will need outpatient pulmonary function testing in approximately 4 to 6 weeks. Would recommend outpatient cardiac stress test once respiratory status has improved back to baseline Strongly encouraged tobacco cessation. Recommend nicotine patches 21 mg patch for 1 week then go to 14 mg patch for 1 week then go to 7 mg patch for 1 week then discontinue. Started on doxycycline 100 mg twice daily for an additional 9 days, continue on prednisone 40 mg daily for an additional 4 days. Continue with Combivent inhaler every 4 hours as needed for shortness of breath, continue with albuterol inhaler as needed for shortness of breath Try to avoid any other airway irritants such as harsh chemicals, strong smells or odors, smoke or dander. Recommend follow-up with primary care provider in 7 to 10 days Call your physician or present to the ED for any acute illness or concern For any worsening shortness of breath please present to the emergency department for further evaluation and treatment APPOINTMENT AT [facility] [address] [address] THROUGH COVID TESTING AT OUT PATIENT ON JUL 24 APPOINTMENT FOR PULMONARY FUNCTION TEST ON MondayJUL 27 AT 9:00 Discharge Date/Time: 06/22/20 09:29 Sign Out Sign Out Data: Patient Sign Out occurred on 06/22/20 at 06:05. Patient's care was discussed, and care was transferred from to Neeraj Nix DO. Coding Level of Care Code ED Bogger Operator for Chg Fwd Exam Comprehensive Documented by User: Neeraj Nix DO 06/27/20 12:17 HPI - SOB/Dyspnea General: Chief Complaint: Shortness of Breath/Dyspnea Stated Complaint: sob Time Seen by Provider: 06/22/20 05:03 [facility] ED PFSH: Medical History (Updated 06/24/20 @ 00:00 by ) No significant past medical history Surgical History (Updated 06/22/20 @ 09:28 by Selam Modi DO) History of esophagogastroduodenoscopy (EGD) History of lumbar laminectomy May 11, 2020 performed in [place], [place] Family History (Updated 06/22/20 @ 09:29 by Selam Modi DO) Grandfather CAD (coronary artery disease), Onset Age: 32 CABG x3 at age 32 Father CAD (coronary artery disease) Grandmother Lung disease Social History (Updated 06/22/20 @ 09:30 by Selam Modi DO) Smoking and tobacco status: current every day smoker cigarettes Packs smoked per day: 2 Alcohol intake: unknown Course Vital Signs: Vital signs: Vital Signs Temperature 97.5 F L 06/23/20 12:00 Pulse Rate 96 06/23/20 15:01 Respiratory Rate 18 06/23/20 13:20 Blood Pressure 132/75 06/23/20 12:00 Pulse Oximetry 95 06/23/20 13:20 MDM - SOB/Dyspnea MDM Narrative: Medical decision making narrative: Patient CTA does not show pulmonary emboli does not show any infection infective in the tree-in-bud appearance has resolved. He does have increased hilar and mediastinal lymphadenopathy which I suspect is reactive. His rapid COVID test was negative. We still do not have an explanation of why he is hypoxic. He is still requiring oxygen by nasal cannula at 3 L/min. He is a former smoker but since I seen him last week ago he is not been able to smoke. Prior to that he was a 30-year pack a day smoker. Discussed with the patient we have to have the ABG so they are going to reattempt that we will get the inflammatory markers we u sually monitor for COVID. RT to do a albuterol inhaler treatment to see if that improves him. I discussed with Dr. Modi is on for the hospitalist and agreed best put this patient on observation and do a PCR COVID swab. Lab Data: Labs: Lab Results 06/22/20 06/22/20 06/22/20 Range/Units 05:06 05:06 05:06 WBC Cancelled Corrected WBC Cancelled RBC Cancelled Hgb Cancelled Hct Cancelled MCV Cancelled MCH Cancelled MCHC Cancelled RDW Cancelled Plt Count Cancelled MPV Cancelled Gran % Cancelled Neut % (Auto) Cancelled Lymph % (Auto) Cancelled Garza % (Auto) Cancelled Eos % (Auto) Cancelled Baso % (Auto) Cancelled Neut # (Auto) Cancelled Lymph # (Auto) Cancelled Garza # (Auto) Cancelled Eos # (Auto) Cancelled Baso # (Auto) Cancelled Absolute Gran (aut o) Cancelled Nucleated RBC % (a uto) Cancelled Nucleated RBCs # Cancelled Fibrinogen (174-498) mg/dL D-Dimer (0-0.59) ug/mIFE U Specimen Type Sample Site ABG pH (7.35-7.45) ABG pCO2 (35-45) mmHg ABG pO2 (80.0-100.0) mmH g ABG HCO3 (22-26) mmol/L ABG Base Excess (-2.0-2.0) mmol/ L Killian Test Hematocrit (42-52) % Hgb O2 Saturation (95-100) % Carboxyhemoglobin (0.4-20.1) %THgb Methemoglobin (0.4-1.5) % Total Hemoglobin (14-18) g/dL O2 Delivery Device FiO2 % Charter Coordinator ID Sodium 138 (136-145) mmol/L Potassium 4.3 (3.5-5.1) mmol/L Chloride 105 (98-107) mmol/L Carbon Dioxide 23 (22-29) mmol/L Anion Gap 14.3 (5-19) BUN 10 (6-20) mg/dL Creatinine 1.0 (0.7-1.2) mg/dL GFR Calculation 81.6 L (90-130) mL/min Glucose 110 (65-115) mg/dL Calculated Osmolal ity 283 L (285-295) mOsm/k g Lactic Acid 1.7 (0.5-2.2) mmol/L Calcium 10.1 (8.5-10.5) mg/dL Ferritin (30-400) ng/mL Total Bilirubin 0.3 (0.15-1.2) mg/dL AST 25 (0-40) U/L ALT 27 (0-41) U/L Alkaline Phosphata se 116 (40-130) IU/L Lactate Dehydrogen ase (135-225) U/L Troponin T Baselin e (0-15) ng/L Troponin T 120 Min [place] (0-15) ng/L Delta Troponin T (0-10) ABS# C-Reactive Protein (0.0-4.9) mg/L NT-Pro-B Natriuret Pep 8 (0-125) pg/mL Total Protein 7.3 (6.6-8.7) g/dL Albumin 4.7 (3.5-5.2) g/dL Globulin 2.6 (1.3-4.6) g/dL Procalcitonin (0-0.5) ng/mL SARS-CoV-2 Ag (Rap id) (Negative) 06/22/20 06/22/20 06/22/20 Range/Units 05:06 05:06 05:52 WBC Corrected WBC RBC Hgb Hct MCV MCH MCHC RDW Plt Count MPV Gran % Neut % (Auto) Lymph % (Auto) Garza % (Auto) Eos % (Auto) Baso % (Auto) Neut # (Auto) Lymph # (Auto) Garza # (Auto) Eos # (Auto) Baso # (Auto) Absolute Gran (aut o) Nucleated RBC % (a uto) Nucleated RBCs # Fibrinogen 309 (174-498) mg/dL D-Dimer 3.34 H (0-0.59) ug/mIFE U Specimen Type Sample Site ABG pH (7.35-7.45) ABG pCO2 (35-45) mmHg ABG pO2 (80.0-100.0) mmH g ABG HCO3 (22-26) mmol/L ABG Base Excess (-2.0-2.0) mmol/ L Killian Test Hematocrit (42-52) % Hgb O2 Saturation (95-100) % Carboxyhemoglobin (0.4-20.1) %THgb Methemoglobin (0.4-1.5) % Total Hemoglobin (14-18) g/dL O2 Delivery Device FiO2 % Charter Coordinator ID Sodium (136-145) mmol/L Potassium (3.5-5.1) mmol/L Chloride (98-107) mmol/L Carbon Dioxide (22-29) mmol/L Anion Gap (5-19) BUN (6-20) mg/dL Creatinine (0.7-1.2) mg/dL GFR Calculation (90-130) mL/min Glucose (65-115) mg/dL Calculated Osmolal ity (285-295) mOsm/k g Lactic Acid (0.5-2.2) mmol/L Calcium (8.5-10.5) mg/dL Ferritin (30-400) ng/mL Total Bilirubin (0.15-1.2) mg/dL AST (0-40) U/L ALT (0-41) U/L Alkaline Phosphata se (40-130) IU/L Lactate Dehydrogen ase (135-225) U/L Troponin T Baselin e 11 (0-15) ng/L Troponin T 120 Min [place] (0-15) ng/L Delta Troponin T (0-10) ABS# C-Reactive Protein (0.0-4.9) mg/L NT-Pro-B Natriuret Pep (0-125) pg/mL Total Protein (6.6-8.7) g/dL Albumin (3.5-5.2) g/dL Globulin (1.3-4.6) g/dL Procalcitonin (0-0.5) ng/mL SARS-CoV-2 Ag (Rap id) Negative (Negative) 06/22/20 06/22/20 06/22/20 Range/Units 06:25 07:15 07:15 WBC 10.7 H Corrected WBC RBC 4.63 Hgb 13.8 Hct 41.9 L MCV 90.5 MCH 29.8 MCHC 32.9 RDW 13.0 Plt Count 342 MPV 9.3 Gran % Neut % (Auto) 62.1 Lymph % (Auto) 23.2 Garza % (Auto) 8.0 Eos % (Auto) 5.3 Baso % (Auto) 0.9 Neut # (Auto) 6.67 Lymph # (Auto) 2.5 Garza # (Auto) 0.9 Eos # (Auto) 0.6 Baso # (Auto) 0.1 Absolute Gran (aut o) Nucleated RBC % (a uto) 0 Nucleated RBCs # 0.0 Fibrinogen (174-498) mg/dL D-Dimer (0-0.59) ug/mIFE U Specimen Type Sample Site ABG pH (7.35-7.45) ABG pCO2 (35-45) mmHg ABG pO2 (80.0-100.0) mmH g ABG HCO3 (22-26) mmol/L ABG Base Excess (-2.0-2.0) mmol/ L Killian Test Hematocrit (42-52) % Hgb O2 Saturation (95-100) % Carboxyhemoglobin (0.4-20.1) %THgb Methemoglobin (0.4-1.5) % Total Hemoglobin (14-18) g/dL O2 Delivery Device FiO2 % Charter Coordinator ID Sodium (136-145) mmol/L Potassium (3.5-5.1) mmol/L Chloride (98-107) mmol/L Carbon Dioxide (22-29) mmol/L Anion Gap (5-19) BUN (6-20) mg/dL Creatinine (0.7-1.2) mg/dL GFR Calculation (90-130) mL/min Glucose (65-115) mg/dL Calculated Osmolal ity (285-295) mOsm/k g Lactic Acid (0.5-2.2) mmol/L Calcium (8.5-10.5) mg/dL Ferritin 198 (30-400) ng/mL Total Bilirubin (0.15-1.2) mg/dL AST (0-40) U/L ALT (0-41) U/L Alkaline Phosphata se (40-130) IU/L Lactate Dehydrogen ase 155 (135-225) U/L Troponin T Baselin e (0-15) ng/L Troponin T 120 Min [place] 10.42 (0-15) ng/L Delta Troponin T -0.58 L (0-10) ABS# C-Reactive Protein 8.3 H (0.0-4.9) mg/L NT-Pro-B Natriuret Pep (0-125) pg/mL Total Protein (6.6-8.7) g/dL Albumin (3.5-5.2) g/dL Globulin (1.3-4.6) g/dL Procalcitonin (0-0.5) ng/mL SARS-CoV-2 Ag (Rap id) (Negative) 06/22/20 06/22/20 Range/Units 07:15 07:51 WBC Corrected WBC RBC Hgb Hct MCV MCH MCHC RDW Plt Count MPV Gran % Neut % (Auto) Lymph % (Auto) Garza % (Auto) Eos % (Auto) Baso % (Auto) Neut # (Auto) Lymph # (Auto) Garza # (Auto) Eos # (Auto) Baso # (Auto) Absolute Gran (aut o) Nucleated RBC % (a uto) Nucleated RBCs # Fibrinogen (174-498) mg/dL D-Dimer (0-0.59) ug/mIFE U Specimen Type Arterial Sample Site Radial, left ABG pH 7.40 (7.35-7.45) ABG pCO2 39.2 (35-45) mmHg ABG pO2 69.7 L (80.0-100.0) mmH g ABG HCO3 24.3 (22-26) mmol/L ABG Base Excess -0.4 (-2.0-2.0) mmol/ L Killian Test Pos Hematocrit 46.9 (42-52) % Hgb O2 Saturation 92.7 L (95-100) % Carboxyhemoglobin 0.9 (0.4-20.1) %THgb Methemoglobin 0.9 (0.4-1.5) % Total Hemoglobin 15.3 (14-18) g/dL O2 Delivery Device Room air FiO2 21.0 % Charter Coordinator ID Cak Sodium (136-145) mmol/L Potassium (3.5-5.1) mmol/L Chloride (98-107) mmol/L Carbon Dioxide (22-29) mmol/L Anion Gap (5-19) BUN (6-20) mg/dL Creatinine (0.7-1.2) mg/dL GFR Calculation (90-130) mL/min Glucose (65-115) mg/dL Calculated Osmolal ity (285-295) mOsm/k g Lactic Acid (0.5-2.2) mmol/L Calcium (8.5-10.5) mg/dL Ferritin (30-400) ng/mL Total Bilirubin (0.15-1.2) mg/dL AST (0-40) U/L ALT (0-41) U/L Alkaline Phosphata se (40-130) IU/L Lactate Dehydrogen ase (135-225) U/L Troponin T Baselin e (0-15) ng/L Troponin T 120 Min [place] (0-15) ng/L Delta Troponin T (0-10) ABS# C-Reactive Protein (0.0-4.9) mg/L NT-Pro-B Natriuret Pep (0-125) pg/mL Total Protein (6.6-8.7) g/dL Albumin (3.5-5.2) g/dL Globulin (1.3-4.6) g/dL Procalcitonin 0.06 (0-0.5) ng/mL SARS-CoV-2 Ag (Rap id) (Negative) Discharge Plan Discharge Patient Disposition: Admitted As Inpatient Admit Provider: Selam Modi Condition: Stable Referrals: Misael Abdalla NP [Referring] - 06/30/20 10:45 am (Please see Misael Huang CLERICAL ADJUSTER at [facility] on [address] at 1045 ) Discharge Diet: Regular Discharge Activity: Increase activity as tolerated Patient Instructions: Doxycycline (By mouth), Prednisone (By mouth), Nicotine (Absorbed through the skin), Ipratropium/Albuterol (By breathing) Additional Instructions: You were admitted to the hospital due to concern for an exacerbation of COPD. To have formal diagnosis of COPD you will need outpatient pulmonary function testing in approximately 4 to 6 weeks. Would recommend outpatient cardiac stress test once respiratory status has improved back to baseline Strongly encouraged tobacco cessation. Recommend nicotine patches 21 mg patch for 1 week then go to 14 mg patch for 1 week then go to 7 mg patch for 1 week then discontinue. Started on doxycycline 100 mg twice daily for an additional 9 days, continue on prednisone 40 mg daily for an additional 4 days. Continue with Combivent inhaler every 4 hours as needed for shortness of breath, continue with albuterol inhaler as needed for shortness of breath Try to avoid any other airway irritants such as harsh chemicals, strong smells or odors, smoke or dander. Recommend follow-up with primary care provider in 7 to 10 days Call your physician or present to the ED for any acute illness or concern For any worsening shortness of breath please present to the emergency department for further evaluation and treatment APPOINTMENT AT [facility] [address] THROUGH [facility] TESTING AT OUT PATIENT ON JUL 24 APPOINTMENT FOR PULMONARY FUNCTION TEST ON MondayJUL 27 AT 9:00 Discharge Date/Time: 06/22/20 09:29 Sign Out Sign Out Data: Patient Sign Out occurred on 06/22/20 at 06:05. Patient's care was discussed, and care was transferred from to Neeraj Nix DO. Coding Level of Care Code ED Bogger Operator for [facility] Orlando Exam Comprehensive
--- NOTE | 2020-06-22 05:56 | CTR_ITS ---
PROCEDURE INFORMATION: Exam: CT Angiography Chest With Contrast Exam date and time: 06/22/2020 6:00 AM Age: 44 years old Clinical indication: Cough and shortness of breath; Additional info: SOB TECHNIQUE: Imaging protocol: Computed tomographic angiography of the chest with intravenous contrast. 3D rendering: MIP and/or 3D reconstructed images were created by the technologist. Radiation optimization: All CT scans at this facility use at least one of these dose optimization techniques: automated exposure control; mA and/or kV adjustment per patient size (includes targeted exams where dose is matched to clinical indication); or iterative reconstruction. Contrast material: OMNI 350; Contrast volume: 68 ml; Contrast route: INTRAVENOUS (IV); COMPARISON: CT angio chest PE protcl [id number] 06/16/2020 2:40 PM RADIATION DOSE METRICS: Total DLP (mGy-cm): 565.89 FINDINGS: Pulmonary arteries: Normal. No pulmonary emboli. Aorta: No aortic aneurysm. No aortic dissection. Thyroid: The bilateral thyroid lobes are unremarkable. Lungs: Unremarkable. No consolidation. No masses. Pleural space: No pneumothorax. No pleural effusion. Heart: Normal. No pericardial effusion. Lymph nodes: Right pulmonary hilar lymph node measuring 11.4 mm short axis, stable. Left pulmonary hilar lymph node measuring 10.6 mm short axis, previously 8.1 mm. Subcarinal lymph node measuring 13.9 mm short axis, previously 11.4 mm. Bones/joints: Multilevel mild thoracic spine chronic vertebral body endplate herniations, occasional thoracic spine vertebral body marginal osteophytes. Soft tissues: Unremarkable. CT/CT angio chest PE protcl [id number] IMPRESSION: 1. No pulmonary embolism identified. 2. Mild interval increase in nonspecific mild mediastinal and left pulmonary hilar lymphadenopathy. Radiation Dose CTDIVOL = (mGy): DLP = 565.89 (mGy-cm)
[2020-06-22 06:11] LABS: Lactic Sepsis W/Reflex 1.7 mmol/L (0.5-2.2)
[2020-06-22 06:12] LABS: Troponin(5th) Baseline 11 ng/L (0-15)
[2020-06-22 06:16] LABS: SARS Covid-2 Antigen Negative (Negative)
[2020-06-22 06:20] LABS: Alanine Aminotransferase 27 U/L (0-41); Albumin Level 4.7 g/dL (3.5-5.2); Alkaline Phosphatase 116 IU/L (40-130); Blood Urea Nitrogen 10 mg/dL (6-20); Calcium 10.1 mg/dL (8.5-10.5); Carbon Dioxide 23 mmol/L (22-29); Chloride 105 mmol/L (98-107); Globulin 2.6 g/dL (1.3-4.6); Glomerular Filtration Rate 81.6 mL/min (90-130); Glucose 110 mg/dL (65-115); NT Pro B Type Natriuretic Pept 8 pg/mL (0-125); Osmolality Calculated 283 mOsm/kg (285-295); Sodium 138 mmol/L (136-145); Total Bilirubin 0.3 mg/dL (0.15-1.2); Total Protein 7.3 g/dL (6.6-8.7)
[2020-06-22 06:29] LABS: Basophils # 0.1 10^3/uL (0.0-0.1); Basophils % 0.9 %; Eosinophils # 0.6 10^3/uL (0.0-0.8); Eosinophils % 5.3 %; Hematocrit 41.9 % (42.0-52.0); Hemoglobin 13.8 g/dL (11.7-16.6); Lymphocytes # 2.5 10^3/uL (0.8-4.8); Lymphocytes % 23.2 %; Mean Corpuscular HGB Conc 32.9 g/dL (30.0-36.0); Mean Corpuscular Hemoglobin 29.8 pg (28.0-34.0); Mean Corpuscular Volume 90.5 fL (80-94); Mean Platelet Volume 9.3 fL (7.4-10.4); Monocytes # 0.9 10^3/uL (0.2-0.9); Neutrophils # 6.67 10^3/uL (1.8-7.7); Neutrophils % 62.1 %; Nucleated Red Blood Cells % 0 %; Platelet Count 342 10^3/cmm (130-400); Red Blood Count 4.63 10^6/uL (4.1-5.3); White Blood Count 10.7 10^3/uL (4.0-10.0)
[2020-06-22 06:38] LABS: Anion Gap 14.3 (5-19); Aspartate Amino Transferase 25 U/L (0-40); Potassium 4.3 mmol/L (3.5-5.1)
--- NOTE | 2020-06-22 07:18 | ECG_ITS ---
[facility] Test Date: 2020-06-22 Pat Name: Zeinab Helm Department: Room: Gender: Male Secretary: : 1975 Requested By: Shadi Evans Order Number: [id number] Obed MD: Mary Greco M.D. Measurements Intervals Galt Rate: 76 P: 67 DC: 216 QRS: 61 QRSD: 81 T: 61 QT: 347 QTc: 391 Interpretive Statements SINUS RHYTHM WITH FIRST DEGREE AV BLOCK Compared to ECG 06/22/2020 05:12:14 First degree AV block now present Electronically Signed On 06-22-2020 16:37:19 CDT by Mary Greco M.D. [id number]
[2020-06-22 07:39] LABS: Troponin 5 2HR 10.42 ng/L (0-15); Troponin 5 2HR Delta -0.58 ABS# (0-10)
[2020-06-22 08:02] LABS: ABG PCO2 39.2 mmHg (35-45); Arterial Blood Gas Hematocrit 46.9 % (42-52); Base Excess ABG -0.4 mmol/L (-2.0-2.0); Blood Gas Allen Test Pos; Blood Gas Operator Identificat CAK; Blood Gas Sample Site Radial, left; Blood Gas Sample Type Arterial; Carboxyhemoglobin 0.9 %THgb (0.4-20.1); HCO3 ABG 24.3 mmol/L (22-26); HGB O2 Sat 92.7 % (95-100); Methemoglobin 0.9 % (0.4-1.5); Oxygen Device ROOM AIR; PO2 ABG 69.7 mmHg (80.0-100.0); Total Hemoglobin 15.3 g/dL (14-18)
[2020-06-22 08:09] LABS: C Reactive Protein 8.3 mg/L (0.0-4.9); Ferritin 198 ng/mL (30-400); Lactate Dehydrogenase 155 U/L (135-225)
[2020-06-22] MEDS: iohexol 350 mg/mL 100 mL Btl IV (08:16)
[2020-06-22 08:33] LABS: D Dimer 3.34 ug/mIFEU (0-0.59); Fibrinogen 309 mg/dL (174-498)
[2020-06-22 08:44] LABS: Procalcitonin 0.06 ng/mL (0-0.5)
[2020-06-22] MEDS: albuterol 8 gm MDI 2 PUFF INHALATION (09:12)
--- NOTE | 2020-06-22 09:22 | P.HP_ITS ---
Providers/Chief Complaint Admitting Physician: Selam Modi DO Primary Care Provider: Ken Key DO Chief Complaint: sob History of Present Illness Zeinab Helm is a 44 year old male with a past medical history of recent lumbar laminectomy in April that presented to the emergency department today for increasing shortness of breath. Patient stated that his symptoms started to become worse on Monday. He stated that he has had increasing cough and shortness of breath, with scant amount of sputum production, unable to expectorate much but feels like he needs to. He denies any fevers or chills at home. He states that he has been out in public some but has not been working due to recent surgery. He stated that he recently completed 7-day course of Levaquin yesterday but due to continued worsening symptoms he came into the ER again for further evaluation and treatment. He states that he has had increasing dyspnea on exertion over the past week since his symptoms have begun. He denies any known exposure to anyone under investigation are positive for COVID-19, however as reported he has been him some public places but wearing a mask. Patient states that he smokes 2 packs/day, recently stopped 3 days ago due to inability to smoke a cigarette due to his dyspnea. He denies any hemoptysis. He reports that he has continued to be active despite his recent lumbar surgery and is participating in therapy regularly. He denies any chest pain or pressure but does report some lung pain in the right side of his chest after coughing and with deep inspiration. Prior to these episodes he denied any chest pain with exertion. Patient was seen and evaluated in the emergency department noted to have concern for hypoxia and admitted for further evaluation and treatment. Initial rapid antigen testing for COVID was negative, however due to clinical suspicion PCR testing was collected and sent for evaluation. Patient was given Solu-Medrol in the ED. He was noted to be hypoxic on room air and placed on 2 L of oxygen by nasal cannula. Review of Systems Const: Denies: fever(s) or chills Eyes: Denies: change in vision ENMT: Denies: nasal congestion Card: Reports: dyspnea on exertion; Denies: chest pain, palpitations or edema Resp: Reports: dyspnea, productive cough, wheezing and pain on inspiration; Denies: hemoptysis GI: Reports: vomiting (Posttussive emesis); Denies: abdominal pain, nausea, diarrhea, constipation, hematochezia or melena : Denies: dysuria or hematuria Musc: Reports: other (Chronic sensitivity in the left lower extremity due to recent surgery); Denies: extremity pain or muscle cramps Skin/Breast: Denies: rash or new lesions Neuro: Reports: other (Recent lumbar laminectomy with hypersensitivity in the left lower extremity); Denies: headache(s) or dizziness Psych: Reports: anxiety; Denies: depression Endo: Denies: polyuria or hot flashes Kain/Lymph: Denies: easy bruising or easy bleeding Medications/Allergies Home Medications Medication Instructions Recorded Confirmed Last Taken Type lorazepam [Ativan] See Rx Instructions .ROUTE .COMPLEX 01/28/20 06/22/20 06/21/20 History albuterol sulfate 2 inh INHALATION Q4H PRN #18 gm 06/16/20 06/22/20 06/22/20 Rx carisoprodol [Soma] 350 mg PO TID PRN 06/16/20 06/22/20 06/15/20 History diclofenac sodium 75 mg PO BID PRN 06/16/20 06/22/20 Unknown History gabapentin See Rx Instructions .ROUTE .COMPLEX 06/16/20 06/22/20 06/19/20 History Allergies Allergy/AdvReac Type Severity Reaction Status Date / Time No Known Allergies Allergy Verified 06/16/20 13:26 PFSH Acute PFSH: Medical History (Updated 06/22/20 @ 09:28 by Selam Modi DO) No significant past medical history Surgical History (Updated 06/22/20 @ 09:28 by Selam Modi DO) History of esophagogastroduodenoscopy (EGD) History of lumbar laminectomy May 11, 2020 performed in [place], [place] Family History (Updated 06/22/20 @ 09:29 by Selam Modi DO) Grandfather CAD (coronary artery disease), Onset Age: 32 CABG x3 at age 32 Father CAD (coronary artery disease) Grandmother Lung disease Social History (Updated 06/22/20 @ 09:30 by Selam Modi DO) Smoking and tobacco status: current every day smoker cigarettes Packs smoked per day: 2 Alcohol intake: unknown Substance/Drug Use: unknown Supplemental PFSH Information: with 6yo son works with [employer] Vitals/Oversee&O/Wt Last Vital Signs Temp 97.9 F 06/22/20 04:56 Pulse 90 06/22/20 09:14 Resp 20 H 06/22/20 09:03 BP 122/74 06/22/20 06:35 Pulse Ox 95 06/22/20 09:03 Weight last 48 hrs Weight 72.575 kg Physical Exam Const: COMMON NORMALS: patient oriented x3 and alert GENERAL APPEARANCE: cooperative ORIENTATION/CONSCIOUSNESS: Yes awake, Yes oriented to person, Yes oriented to place and Yes oriented to time HENMT: COMMON NORMALS: normocephalic and atraumatic HEAD & SCALP: normocephalic and atraumatic Eye: COMMON NORMALS: Equal, round and reactive pupils present PUPIL: Yes Equal, round and reactive pupils present Neck/C-Spine: COMMON NORMALS: supple GENERAL: Yes normal visual inspection Resp: EFFORT & INSPECTION: Yes tachypneic, Yes Actively coughing and Yes uses accessory muscles AUSCULTATION: no rhonchi and wheezes expiratory wheezes, inspiratory wheezes and throughout Cardio: COMMON NORMALS: regular rate, regular rhythm and No murmurs present (Cardio) RATE: regular rate RHYTHM: regular rhythm GI: COMMON NORMALS: Soft to palpation and non-tender INSPECTION: No abdominal distension AUSCULTATION: Yes normoactive bowel sounds PALPATION: Yes Soft to palpation : COMMON NORMALS: Yes no CVA tenderness BLADDER/KIDNEY EXAM: Yes no CVA tenderness Back/Pelvis: COMMON NORMALS: no CVA tenderness Extremity: COMMON NORMALS: no clubbing, cyanosis or edema and no calf tenderness Neuro: COMMON NORMALS: patient oriented x3, CN's II-XII intact bilaterally, moves all extremities and no focal motor deficits SENSORIUM/ORIENTATION: Yes alert, Yes oriented to person, Yes oriented to place and Yes oriented to time SPEECH: speech normal OTHER: hypersensitivity of the L LE to touch, chronic Psych: COMMON NORMALS: mental status grossly normal and cooperative Skin: COMMON NORMALS: no rashes or lesions noted GENERAL SKIN EXAM: no rashes or lesions noted Data : 06/22/20 06:25 06/22/20 05:06 CTA Chest: I personally reviewed and interpreted this imaging study as follows: Radiologist's impression: FINDINGS: Pulmonary arteries: Normal. No pulmonary emboli. Aorta: No aortic aneurysm. No aortic dissection. Thyroid: The bilateral thyroid lobes are unremarkable. Lungs: Unremarkable. No consolidation. No masses. Pleural space: No pneumothorax. No pleural effusion. Heart: Normal. No pericardial effusion. Lymph nodes: Right pulmonary hilar lymph node measuring 11.4 mm short axis, stable. Left pulmonary hilar lymph node measuring 10.6 mm short axis, previously 8.1 mm. Subcarinal lymph node measuring 13.9 mm short axis, previously 11.4 mm. Bones/joints: Multilevel mild thoracic spine chronic vertebral body endplate herniations, occasional thoracic spine vertebral body marginal osteophytes. Soft tissues: Unremarkable. CT/CT angio chest PE protcl [id number] IMPRESSION: 1. No pulmonary embolism identified. 2. Mild interval increase in nonspecific mild mediastinal and left pulmonary hilar lymphadenopathy. CXR: I personally reviewed and interpreted this imaging study as follows: Radiologist's impression: FINDINGS: Tubes, catheters and devices: EKG leads are present overlying the chest. Lungs: The lungs are clear bilaterally. The pulmonary vasculature is normal. Pleural space: No pleural effusion. No pneumothorax. Heart/Mediastinum: The heart is normal in size and contour. Mediastinum: Stable. Bones/joints: Right lateral vertebral body marginal osteophytes are noted at lower thoracic spinal levels. XR/XR A&P Assessment and plan (1) COPD exacerbation: Although it has not been formally diagnosed, concern for underlying COPD with an acute exacerbation Patient has diffuse wheezing throughout, will start on doxycycline and continue on prednisone 40 mg daily, given Solu-Medrol 125 mg while in the ED Respiratory therapy to assess and treat Oxygen per protocol Also testing due to concern for viral pneumonia, COVID-19 PCR ordered and pendin g Patient to remain on contact and droplet precautions Status: Acute (2) Hypoxia: Secondary to above Also testing for viral pneumonia with COVID-19 PCR ordered and pending Procalcitonin negative, CT scan of the chest does not show any evidence of pulmonary embolism, no consolidation or concern for pneumonia at this time. Concern for COPD with acute exacerbation continue on doxycycline, prednisone, oxygen per protocol with respiratory therapy to assess and treat Flutter valve and incentive spirometer ordered for bedside Status: Acute (3) Tobacco abuse: Strongly encourage cessation Nicotine patch ordered as needed Status: Acute Additional A&P Information Patient had recent laminectomy, hypersensitivity in the left lower extremity along the L3 dermatome. Patient reports that this is chronic in nature since his surgery, no acute changes DVT prophylaxis: Lovenox Diet: Regular CODE STATUS: Full code Attestations Medical Necessity Statement*: Observation placement due to concern for hypoxia with an acute COPD exacerbation and testing for viral pneumonia. Expected stay less than 2 midnights Coding Level of Care Code Acute Child Protective Services Specialist for [facility] Fwd Exam Comprehensive Diagnoses COPD exacerbation J44.1 Hypoxia R09.02 Tobacco abuse Z72.0
[2020-06-22] MEDS: nicotine 21 mg Patch 1 PATCH TRANSDERMA (10:54)
[2020-06-22] MEDS: predniSONE 20 mg Tablet 40 MG PO (10:55)
[2020-06-22] MEDS: enoxaparin 40 mg/0.4 mL Syringe SUBCUT (10:55)
[2020-06-22] MEDS: doxycycline 100 mg Tablet PO ×2 (10:55→18:52)
[2020-06-22] MEDS: sodium chloride 0.9% 1,000 ML 30 ML IV (10:56)
[2020-06-22 12:11] LABS: Troponin 5 6HR 7.22 ng/L (0-15)
[2020-06-22 12:12] LABS: Troponin 5 6HR Delta -3.78 ng/L (0-12)
[2020-06-22] MEDS: gabapentin 300 mg Capsule PO ×3 (16:13→20:11)
[2020-06-22 21:56] LABS: Coronavirus Lab Test PTC Negative
[2020-06-23] VITALS (9 sets, daily range): BP systolic 121–135; BP diastolic 66–75; PULSE 65–101; RESP 17–20; TEMP 36.4–36.6; O2SAT 90–96
[2020-06-23 05:20] LABS: Basophils % 0.2 %; Eosinophils % 0.2 %; Hematocrit 42.4 % (42.0-52.0); Hemoglobin 14.2 g/dL (11.7-16.6); Lymphocytes # 2.3 10^3/uL (0.8-4.8); Lymphocytes % 10.7 %; Mean Corpuscular HGB Conc 33.5 g/dL (30.0-36.0); Mean Corpuscular Hemoglobin 30.7 pg (28.0-34.0); Mean Corpuscular Volume 91.8 fL (80-94); Mean Platelet Volume 9.9 fL (7.4-10.4); Monocytes # 1.5 10^3/uL (0.2-0.9); Monocytes % 6.7 %; Neutrophils # 17.73 10^3/uL (1.8-7.7); Neutrophils % 81.5 %; Nucleated Red Blood Cells % 0 %; Platelet Count 342 10^3/cmm (130-400); Red Blood Count 4.62 10^6/uL (4.1-5.3); Red Cell Distribution Width 13.2 % (12.1-15.1); White Blood Count 21.8 10^3/uL (4.0-10.0)
[2020-06-23 05:44] LABS: Alanine Aminotransferase 30 U/L (0-41); Albumin Level 4.1 g/dL (3.5-5.2); Alkaline Phosphatase 96 IU/L (40-130); Anion Gap 13.1 (5-19); Aspartate Amino Transferase 23 U/L (0-40); Blood Urea Nitrogen 12 mg/dL (6-20); Calcium 8.8 mg/dL (8.5-10.5); Carbon Dioxide 24 mmol/L (22-29); Chloride 106 mmol/L (98-107); Creatinine Clr Calc Pharmacy 120.3238; Glomerular Filtration Rate 105.5 mL/min (90-130); Glucose 125 mg/dL (65-115); Osmolality Calculated 286 mOsm/kg (285-295); Potassium 4.1 mmol/L (3.5-5.1); Sodium 139 mmol/L (136-145); Total Bilirubin 0.4 mg/dL (0.15-1.2); Total Protein 7.1 g/dL (6.6-8.7)
[2020-06-23] MEDS: doxycycline 100 mg Tablet PO (09:49)
[2020-06-23] MEDS: predniSONE 20 mg Tablet 40 MG PO (09:49)
[2020-06-23] MEDS: gabapentin 300 mg Capsule PO ×2 (09:49→13:53)
[2020-06-23] MEDS: nicotine 21 mg Patch 1 PATCH TRANSDERMA (09:50)
[2020-06-23] MEDS: enoxaparin 40 mg/0.4 mL Syringe SUBCUT ×2 (09:51→09:52)
[2020-06-23] MEDS: cetylpyridinium Lozenge 1 EACH MUCOUS MEM (12:48)
--- NOTE | 2020-06-23 13:03 | PM.DCS ---
Discharge Providers Date of Admission: 06/22/20 09:06 Date of Discharge: June 23, 2020 Attending Provider at Admission: Selam Modi DO Attending Provider at Discharge: Selam Modi DO Primary Care Provider: Ken Key DO Diagnoses at Discharge Discharge Diagnosis (1) COPD exacerbation: Status: Acute (2) Hypoxia: Status: Acute (3) Tobacco abuse: Status: Acute Reason for Visit Reason for Visit: sob Hospital Course Hospital Course: Patient was seen and evaluated in the emergency department noted to have concern for increasing dyspnea and concern for COPD exacerbation. Patient was tested for COVID-19 and returned negative. Chest x-ray was performed as well as CTA was performed which was negative for PE and negative for any consolidation or pneumonia. He was noted to have diffuse wheezing and hypoxemia therefore admitted for observation for further evaluation and treatment. Patient was started on doxycycline and prednisone and continued to have improvement in symptoms. On hospital day #2 patient reported continued occasional cough but dyspnea had improved, wheezing had improved, but remained present, however patient had significantly improved air movement. Discussed with patient on date of discharge plan for discharge to home as his oxygen requirements had subsided and he remained on room air without any episodes of desaturation. Discussed with patient on date of discharge plan for discharge to home with antibiotics, steroids and nicotine patches, he verbalized understanding and agreed with plan. Discharge Summary: Plan for discharge to home with self-care. Discharged with doxycycline and prednisone. Follow-up with primary care provider in 7 to 10 days. Recommend outpatient pulmonary function testing in 3 to 4 weeks, recommend outpatient cardiac stress testing in 4 to 6 weeks Physical Exam Const: COMMON NORMALS: patient oriented x3 and alert GENERAL APPEARANCE: cooperative ORIENTATION/CONSCIOUSNESS: Yes awake, Yes oriented to person, Yes oriented to place and Yes oriented to time HENMT: COMMON NORMALS: normocephalic and atraumatic HEAD & SCALP: normocephalic and atraumatic Eye: COMMON NORMALS: Equal, round and reactive pupils present PUPIL: Yes Equal, round and reactive pupils present Neck/C-Spine: COMMON NORMALS: supple GENERAL: Yes normal visual inspection Resp: EFFORT & INSPECTION: Yes tachypneic, Yes Actively coughing and Yes uses accessory muscles AUSCULTATION: no rhonchi and wheezes expiratory wheezes OTHER: Expiratory wheezing improved, improved air movement Cardio: COMMON NORMALS: regular rate, regular rhythm and No murmurs present (Cardio) RATE: regular rate RHYTHM: regular rhythm GI: COMMON NORMALS: Soft to palpation and non-tender INSPECTION: No abdominal distension AUSCULTATION: Yes normoactive bowel sounds PALPATION: Yes Soft to palpation Extremity: COMMON NORMALS: no clubbing, cyanosis or edema and no calf tenderness Neuro: COMMON NORMALS: patient oriented x3, CN's II-XII intact bilaterally, moves all extremities and no focal motor deficits SENSORIUM/ORIENTATION: Yes alert, Yes oriented to person, Yes oriented to place and Yes oriented to time SPEECH: speech normal OTHER: hypersensitivity of the L LE to touch, chronic Psych: COMMON NORMALS: mental status grossly normal and cooperative Skin: COMMON NORMALS: no rashes or lesions noted GENERAL SKIN EXAM: no rashes or lesions noted Discharge Data Data Completed and Pending: Completed Studies During Hospitalization Category Date Time Status CT angio chest PE protcl [id number] Urge nt Cat Scan 06/22/20 05:56 Completed XR chest 1V jose ble [id number] Urgent Exams 06/22/20 05:17 Completed Pending at discharge Category Date Time Status Sputum Culture an d Gram Stain Stat Lab 06/22/20 06:36 Results Labs from last 24 hours 06/23/20 06/23/20 06/22/20 04:38 04:38 09:32 WBC 21.8 H RBC 4.62 Hgb 14.2 Hct 42.4 MCV 91.8 MCH 30.7 MCHC 33.5 RDW 13.2 Plt Count 342 MPV 9.9 Neut % (Auto) 81.5 Lymph % (Auto) 10.7 [place] % (Auto) 6.7 Eos % (Auto) 0.2 Baso % (Auto) 0.2 Neut # (Auto) 17.73 H Lymph # (Auto) 2.3 [place] # (Auto) 1.5 H Eos # (Auto) 0.0 Baso # (Auto) 0.0 Nucleated RBC % (a uto) 0 Nucleated RBCs # 0.0 Sodium 139 Potassium 4.1 Chloride 106 Carbon Dioxide 24 Anion Gap 13.1 BUN 12 Creatinine 0.8 GFR Calculation 105.5 Glucose 125 H Calculated Osmolal ity 286 Calcium 8.8 Total Bilirubin 0.4 AST 23 ALT 30 Alkaline Phosphata se 96 Total Protein 7.1 Albumin 4.1 Globulin 3.0 Nasal/Oral COVID-1 9 PCR Negative Vitals: Last Vital Signs Temp 97.5 F L 06/23/20 12:00 Pulse 101 H 06/23/20 12:00 Resp 20 H 06/23/20 12:00 BP 132/75 06/23/20 12:00 Pulse Ox 94 06/23/20 12:00 Discharge Plan Discharge Patient Disposition: Home Condition: Stable Prescriptions: New prednisone 20 mg Tablet 40 mg PO DAILY 4 Days Qty: 8 RF: 0 doxycycline monohydrate 100 mg Tablet 100 mg PO BID 9 Days Qty: 18 RF: 0 nicotine 21 mg/24 hr Patch 24 Hour 1 patch transdermal DAILY 7 Days Qty: 7 RF: 0 Combivent Respimat 20-100 mcg/actuation Mist 1 puff inhalation QID.RESPIRATORY 30 Days Qty: 1 RF: 0 Continued lorazepam [Ativan] 0.5 mg Tablet See Rx Instructions .ROUTE .COMPLEX RF: 0 carisoprodol [Soma] 350 mg Tablet 350 mg PO TID PRN (Reason: Pain) RF: 0 gabapentin 300 mg Capsule See Rx Instructions .ROUTE .COMPLEX RF: 0 diclofenac sodium 75 mg Tablet,Delayed Release (Dr/Ec) 75 mg PO BID PRN (Reason: Pain) RF: 0 albuterol sulfate 90 mcg/actuation HFA aerosol inhaler 2 inh INHALATION Q4H PRN (Reason: shortness of breath or wheezing) Qty: 18 RF: 0 Discharge Orders: Discharge Order (Routine); Ordered 06/23/20 Ordered By: Selam Modi Other Ambulatory Orders: Pulmonary Function Screen with Bronchodilator (Routine) Timeframe: 1 Month Facility: [facility] - Location: Respiratory Therapy Ordered By: Selam Modi Referrals: Ken Key, [Primary Care Provider] - 7-10 days (Recommend outpatient pulmonary function testing in 3 to 4 weeks Recommend outpatient cardiac stress test in 3 to 4 weeks) Discharge Diet: Regular Discharge Activity: Increase activity as tolerated Activity Restrictions/Additional Instructions: You were admitted to the hospital due to concern for an exacerbation of COPD. To have formal diagnosis of COPD you will need outpatient pulmonary function testing in approximately 4 to 6 weeks. Would recommend outpatient cardiac stress test once respiratory status has improved back to baseline Strongly encouraged tobacco cessation. Recommend nicotine patches 21 mg patch for 1 week then go to 14 mg patch for 1 week then go to 7 mg patch for 1 week then discontinue. Started on doxycycline 100 mg twice daily for an additional 9 days, continue on prednisone 40 mg daily for an additional 4 days. Continue with Combivent inhaler every 4 hours as needed for shortness of breath, continue with albuterol inhaler as needed for shortness of breath Try to avoid any other airway irritants such as harsh chemicals, strong smells or odors, smoke or dander. Recommend follow-up with primary care provider in 7 to 10 days Call your physician or present to the ED for any acute illness or concern For any worsening shortness of breath please present to the emergency department for further evaluation and treatment Discharge Attestations Time Spent in Discharge Care*: greater than 30 min Specific Discharge Activities: Specific discharge activities: educating patient, educating and/or supporting family/caregiver and documenting/other paperwork Time Spent in Smoking Cessation: Time spent discussing smoking cessation with patient: 3 to 10 minutes Details of Smoking Cessation Education: Provided nicotine patches, discussed concern for COPD. Discussed the benefits of stopping smoking Quality Metrics Clinical Quality Measures During this hospital stay, did patient experience: None Coding Level of Care Code Acute Chief Engineer Production for [facility] Diagnoses COPD exacerbation J44.1 Hypoxia R09.02 Tobacco abuse Z72.0
--- NOTE | 2020-06-24 12:20 | PC.RESP ---
Smoking Cessation information sent to patient.
== END 2020-06-23 14:30 | disposition home or self-care (01) ==
LOC: ER 06:56 → MEDSURG 09:21
PROVIDERS: Emergency Medicine; Family Medicine; Admitting Provider Family Medicine; PCP Family Medicine; Visit Provider Family Medicine
DX: J44.1 Chronic obstructive pulmonary disease with (acute) exacerbation (principal); R09.02 Hypoxemia; F17.210 Nicotine dependence, cigarettes, uncomplicated; Z20.828 Contact with and (suspected) exposure to other viral communicable diseases
CPT/HCPCS: 12345; 36415; 36600; 71045; 71275; 80053; 82728; 82805; 83605; 83615; 83880; 84145; 84484; 85025; 85378; 85384; 86140; 87070; 87205; 87426; 87635; 93005; 94640; 96372; 96374; 99283; 99285; G0378; J1650; J2930; J3535; J7030; J7512; Q9967

== ENCOUNTER 2020-08-16 09:31 | Emergency (ER) | payer OTHER, SELFPAY ==
[2020-08-16 09:55] VITALS: BP 123/106; PULSE 85; RESP 16; TEMP 36.7; O2SAT 100; BMI 22.6
--- NOTE | 2020-08-16 10:13 | W.ED.BACK ---
HPI - Back Pain/Injury General: Chief Complaint: Back Pain/Injury Stated Complaint: PAIN POST OP 05/11 Time Seen by Provider: 08/16/20 10:04 Source: patient Mode of arrival: ambulatory Limitations: no limitations History of Present Illness: HPI Narrative: 44-year-old male has a history of chronic back pain and had a laminectomy earlier this year. He was cutting trees yesterday and his foot slipped and slammed into the ground he had severe pain in his left lower back shooting down his leg since last night. States pain is a 9 out of 10. Denies any bowel or bladder incontinence. Associated symptoms: Deny abdominal pain, chills, dysuria, fever(s), nausea or vomiting Review of Systems Const: Denies: fever(s), chills, body aches or change in appetite Eyes: Denies: blurry vision or eye discomfort ENMT: Denies: throat pain or dental pain Card: Denies: chest pain Resp: Denies: dyspnea GI: Denies: abdominal pain, nausea, vomiting or diarrhea : Denies: dysuria Musc: Reports: back pain; Denies: neck pain Skin/Breast: Denies: rash Neuro: Denies: headache(s) Psych: Denies: depression Kain/Lymph: Denies: easy bruising All/Imm: Denies: urticaria PFSH ED PFSH: Medical History No significant past medical history Surgical History History of esophagogastroduodenoscopy (EGD) History of lumbar laminectomy May 11, 2020 performed in [place], [place] Family History Grandfather CAD (coronary artery disease), Onset Age: 32 CABG x3 at age 32 Father CAD (coronary artery disease) Grandmother Lung disease Social History Smoking and tobacco status: current every day smoker cigarettes Packs smoked per day: 2 Alcohol intake: unknown Physical Exam Back/Pelvis: OTHER: Tenderness over left lower back. No midline tenderness. No saddle anesthesia. Course Vital Signs: Vital signs: Vital Signs Temperature 98.1 F 08/16/20 09:55 Pulse Rate 85 08/16/20 09:55 Respiratory Rate 20 H 08/16/20 10:29 Blood Pressure 123/106 08/16/20 09:55 Pulse Oximetry 100 08/16/20 09:55 MDM - Back Pain/Injury MDM Narrative: Medical decision making narrative: Patient presents with back pain is likely muscular in nature with sciatica. He is well-appearing here and is stable for discharge. I gave him pain meds along with Decadron. He is to follow-up with his neurosurgeon in 3 to 5 days and return to ER if worsening. He understands and agrees to plan. Discharge Plan Discharge Patient Disposition: Home Clinical Impression: Low back pain Condition: Stable Prescriptions: New Lequire 5-325 mg tablet 1 tab PO Q6H PRN (Reason: pain) Qty: 14 RF: 0 Robaxin-750 750 mg tablet 750 mg PO Q6H Qty: 30 RF: 0 Naprosyn 500 mg tablet 500 mg PO BID PRN (Reason: pain) Qty: 20 RF: 0 Discharge Orders: Discharge Order (Routine); Ordered 08/16/20 Ordered By: Kenisha Melgar Referrals: Ken Key, [Primary Care Provider] - Discharge Diet: Advance as tolerated Discharge Activity: Resume usual activity Patient Instructions: Chronic Back Pain (ED), Back Pain (ED) Coding Level of Care Code ED Habilitative Interventionist for [facility] Orlando
--- NOTE | 2020-08-16 10:17 | XRR_ITS ---
PROCEDURE INFORMATION: Exam: XR Lumbosacral Spine, 2 or 3 Views Exam date and time: 08/16/2020 10:17 AM Age: 44 years old Clinical indication: Low back pain; Prior surgery; Surgery type: May 11 back TECHNIQUE: Imaging protocol: XR of the lumbosacral spine, 2 or 3 views. COMPARISON: CT Abdomen/Pelvis w IV* [id number] 11/08/2018 7:42 PM FINDINGS: Vertebrae: Normal. No acute fracture. Normal alignment. Soft tissues: Unremarkable. XR/XR lumbar spine 2-3V* [id number] IMPRESSION: No acute findings.
[2020-08-16] MEDS: dexamethasone 10 mg/mL INJ IM (10:28)
[2020-08-16 10:29] VITALS: RESP 20
[2020-08-16] MEDS: morphine 4 mg/mL SDV 1 mL 8 MG IM (10:29)
[2020-08-16 12:42] VITALS: RESP 16
[2020-08-16] MEDS: morphine 4 mg/mL SDV 1 mL IM (12:42)
[2020-08-16] MEDS: HYDROcodone-acetaminophen 10-325 mg Tablet 2 TAB PO (12:43)
[2020-08-16 12:48] VITALS: BP 130/87; PULSE 77; RESP 18; O2SAT 98
== END 2020-08-16 12:50 | disposition home or self-care (01) ==
PROVIDERS: Emergency Provider Emergency Medicine; PCP Family Medicine
DX: M54.5 Low back pain (principal); F17.210 Nicotine dependence, cigarettes, uncomplicated
CPT/HCPCS: 12345; 72100; 96372; 99281; 99283; J1100; J2270